=== PATIENT | female | born 1985 | race Caucasian/White ===

== ENCOUNTER 2016-03-09 18:28 | Emergency (ER) | payer OTHER ==
[2016-03-09 18:52] VITALS: BP 103/64; PULSE 97; TEMP 99.2; BMI 28.1
--- NOTE | 2016-03-09 21:00 | PDOC ---
History of Present Illness <LeoLudmila Pippa - Last Filed: 03/10/16 01:00> - History of Present Illness Initial Comments: 03/09/16 22:00 The patient is a 30 year old 8 week female with a past medical hx of kidney stones, anemia who presents to the ED for evaluation of vaginal bleeding and pelvic pain this evening. The patient states she used the bathroom and noticed red blood on the tissue. She denies any clots. She states this happened one time and has not happened again. The patient states she had LMP on January 08. She had an Ultrasound completed at 1 month of . 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 Schmidt, states there was no visual fetus because the was not far along enough. She reports she sees a Urologist for bladder problems and reports the Urologist saw gallstones with an US. The patient denies any abdominal pain, nausea, vomiting The patient denies any fever, chills The patient denies any chest pain, SOB Allergies: NKDA Surgical: Appendectomy Social: No toxic habits reported OBGYN: Dr. Schmidt <Jolie Robert - Last Filed: 03/10/16 01:05> - General Chief Complaint: Pain, Acute Stated Complaint: ABDOMINAL PAIN/8 WKS Time Seen by Provider: 03/09/16 19:53 Past History - Past Medical History Anemia: Yes Asthma: No Cancer: No Cardiac Disorders: No CVA: No COPD: No CHF: No Dementia: No Diabetes: No GI Disorders: Yes (ACID REFLUX, GASTRITIS) Disorders: Yes (UTI, Kidney Stones) HTN: No Hypercholesterolemia: No Kidney Stones: Yes Liver Disease: No Seizures: No Thyroid Disease: No - Surgical History Abdominal Surgery: No Appendectomy: Yes Cardiac Surgery: No Cholecystectomy: No Lung Surgery: No Neurologic Surgery: No Orthopedic Surgery: No - Immunization History Td Vaccination: Yes TDAP Vaccination: Yes Immunization Up to Date: Yes - Psycho/Social/Smoking Cessation Hx Anxiety: No Suicidal Ideation: No Smoking Status: No Smoking History: Never smoked Number of Cigarettes Smoked Daily: 0 Hx Alcohol Use: No Drug/Substance Use Hx: No Substance Use Type: None <LeoLudmilabronson Das - Last Filed: 03/10/16 01:00> <Jolie Robert - Last Filed: 03/10/16 01:05> - Past Medical History Allergies/Adverse Reactions: Allergies Allergy/AdvReac Type Severity Reaction Status Date / Time No Known Allergies Allergy Verified 03/09/16 18:41 Home Medications: Ambulatory Orders NK [No Known Home Medication] 03/09/16 Review of Systems - Review of Systems Able to Perform ROS?: Yes Comments:: 03/09/16 22:04 CONSTITUTIONAL: Absent: fever, chills, diaphoresis, generalized weakness, malaise, loss of appetite HEENT: Absent: rhinorrhea, nasal congestion, throat pain, throat swelling, difficulty swallowing, mouth swelling, ear pain, eye pain, visual Changes CARDIOVASCULAR: Absent: chest pain, syncope, palpitations, irregular heart rate, lightheadedness , peripheral edema RESPIRATORY: Absent: cough, shortness of breath, dyspnea with exertion, orthopnea, wheezing, stridor, hemoptysis GASTROINTESTINAL: Absent: abdominal pain, abdominal distension, nausea, vomiting, diarrhea, constipation, melena, hematochezia GENITOURINARY: +Vaginal bleeding, pelvic pain Absent: dysuria, frequency, urgency, hesitancy, hematuria, flank pain, genital pain MUSCULOSKELETAL: Absent: myalgia, arthralgia, joint swelling SKIN: Absent: rash, itching, pallor HEMATOLOGIC/IMMUNOLOGIC: Absent: easy bleeding, easy bruising, lymphadenopathy, frequent infections ENDOCRINE: Absent: unexplained weight gain, unexplained weight loss, heat intolerance, cold intolerance NEUROLOGIC: Absent: headache, focal weakness or paresthesias, dizziness, unsteady gait, seizure, mental status changes, bladder or bowel incontinence PSYCHIATRIC: Absent: anxiety, depression, suicidal or homicidal ideation, hallucinations. <Jolie Robert - Last Filed: 03/10/16 01:05> *Physical Exam - Vital Signs Last Vital Signs Temp Pulse Resp BP Pulse Ox 99.2 F 97 H 16 103/64 99 03/09/16 18:41 03/09/16 18:41 03/09/16 18:41 03/09/16 18:41 03/09/16 18:41 <Ludmila Bailey - Last Filed: 03/10/16 01:00> - Vital Signs Last Vital Signs Temp Pulse Resp BP Pulse Ox 99.2 F 97 H 16 103/64 99 03/09/16 18:41 03/09/16 18:41 03/09/16 18:41 03/09/16 18:41 03/09/16 18:41 - Physical Exam Comments: 03/09/16 23:16 GENERAL: Well developed, well nourished. Awake and alert. No acute distress. HEENT: Normocephalic, atraumatic. PERRLA, EOMI. No conjunctival pallor. Sclera are non- icteric. Moist mucous membranes. Oropharynx is clear. NECK: Supple. Full ROM. No JVD. Carotid pulses 2+ and symmetric, without bruits. No thyromegaly. No lymphadenopathy. CARDIOVASCULAR: Regular rate and rhythm. No murmurs, rubs, or gallops. Distal pulses are 2+ and symmetric. PULMONARY: No evidence of respiratory distress. Lungs clear to auscultation bilaterally. No wheezing, rales or rhonchi. ABDOMINAL: +Suprapubic tenderness. Soft. Non-distended. No rebound or guarding. No organomegaly. Normoactive bowel sounds. MUSCULOSKELETAL Normal range of motion at all joints. No bony deformities or tenderness. No CVA tenderness. EXTREMITIES: No cyanosis. No clubbing. No edema. No calf tenderness. SKIN: Warm and dry. Normal capillary refill. No rashes. No jaundice. NEUROLOGICAL: Alert, awake, appropriate. Cranial nerves 2-12 intact. No deficits to light touch and temperature in face, upper extremities and lower extremities. No motor deficits in the in face, upper extremities and lower extremities. Normoreflexic in the upper and lower extremities. Normal speech. PSYCHIATRIC: Cooperative. Good eye contact. Appropriate mood and affect. <Jolie Robert - Last Filed: 03/10/16 01:05> ED Treatment Course - LABORATORY CBC & Chemistry Diagram: 03/09/16 21:31 - RADIOLOGY Radiology Studies Ordered: Category Date Time Status TRANSVAGINAL ULTRASOUND US [US] Stat Ultrasound 03/09/16 20:50 Ordered <Ludmila Bailey - Last Filed: 03/10/16 01:00> - LABORATORY CBC & Chemistry Diagram: 03/09/16 21:31 - ADDITIONAL ORDERS Additional order review: Laboratory Results 03/09/16 21:31 Urine Color Straw Urine Appearance Clear Urine pH 7.0 Ur Specific Guin 1.013 Urine Protein Negative Urine Glucose (UA) Negative Urine Ketones Negative Urine Blood Negative Urine Nitrite Negative Urine Bilirubin Negative Urine Urobilinogen Negative Ur Leukocyte Esterase Negative 03/09/16 21:31 RBC 4.37 MCV 85.5 MCHC 32.4 RDW 14.6 MPV 8.2 Neutrophils % 66.9 Lymphocytes % 23.9 D Monocytes % 6.8 Eosinophils % 1.1 Basophils % 1.3 D - RADIOLOGY Radiology Studies Ordered: 03/10/16 01:05 Transvaginal US Impression: Single intrauterine gestational sac with estimated gestational age of 7 weeks 3 days. No pole is identified. No yolk sac is seen. Rule out blighted ovum/missed . Please correlate with serial quantitative serum beta-hCG and follow-up ultrasound is needed for further evaluation. Possible hemorrhagic corpus luteum cyst in the right ovary measuring 1.8 cm. 1.9 cm anterior myometrial fibroid Reported By: Josie Hartman MD 03/10/16 0014 <Jolie Robert - Last Filed: 03/10/16 01:05> *DC/Admit/Observation/Transfer <Ludmila Bailey - Last Filed: 03/10/16 01:00> - Attestations Scribe Attestion: 03/09/16 22:05 Documentation prepared by Jolie Robert, acting as medical office clerk for Ludmila Bailey MD/DO. <Jolie Robert - Last Filed: 03/10/16 01:05> Diagnosis at time of Disposition: Blighted ovum - Discharge Dispostion Disposition: HOME Condition at time of disposition: Stable - Referrals Referrals: STAFF,NOT ON [Primary Care Provider] - - Patient Instructions Printed Discharge Instructions: DI for Threatened Additional Instructions: There is concern for a blighted ovum because the ultrasound did not show a pole or yolk sac Please see Dr Schmidt for further evaluation Print Language: BHUTANESE
[2016-03-09 21:43] LABS: BASOPHIL 1.3 % (0-2.0); EOSINOPHIL 1.1 % (0-4.5); MCH 27.7 pg (25.7-33.7); MCHC 32.4 g/dl (32.0-36.0); MEAN CELL VOLUME 85.5 fl (80-96); MEAN PLT VOLUME 8.2 fl (7.5-11.1); NEUTROPHILS 66.9 % (42.8-82.8); PLATELET COUNT 274 K/MM3 (134-434); RDW 14.6 % (11.6-15.6); WHITE BLOOD COUNT 15.8 K/mm3 (4.0-10.0)
[2016-03-09 21:57] LABS: URINE APPEARANCE CLEAR; URINE BILIRUBIN NEGATIVE (NEGATIVE); URINE BLOOD NEGATIVE (NEGATIVE); URINE COLOR STRAW; URINE GLUCOSE (UA) NEGATIVE (NEGATIVE); URINE KETONE NEGATIVE (NEGATIVE); URINE LEUK ESTERASE NEGATIVE (NEGATIVE); URINE NITRITE NEGATIVE (NEGATIVE); URINE PROTEIN NEGATIVE (NEGATIVE); URINE UROBILINOGEN NEGATIVE E.U./dl (0.2-1.0)
== END 2016-03-10 01:07 | disposition home or self-care (01) ==
LOC: JER 18:28
DX: O26.891 Other specified pregnancy related conditions, first trimester (principal); Z3A.08 8 weeks gestation of pregnancy; O02.0 Blighted ovum and nonhydatidiform mole; Z87.442 Personal history of urinary calculi; Z86.2 Personal history of diseases of the blood and blood-forming organs and certain disorders involving the immune mechanism; K21.9 Gastro-esophageal reflux disease without esophagitis; Z87.440 Personal history of urinary (tract) infections
CPT/HCPCS: 36415; 76817-TC; 81003; 84702; 85025; 86850; 86900; 86901; 99282-25

== ENCOUNTER 2016-06-11 17:21 | Inpatient (IN) | payer OTHER ==
[2016-06-11 19:06] LABS: MCH 27.4 pg (25.7-33.7); MCHC 32.9 g/dl (32.0-36.0); MEAN CELL VOLUME 83.2 fl (80-96); MEAN PLT VOLUME 8.1 fl (7.5-11.1); PLATELET COUNT 245 K/MM3 (134-434); RDW 14.4 % (11.6-15.6); WHITE BLOOD COUNT 24.1 K/mm3 (4.0-10.0)
[2016-06-11] MEDS ORDERED: ONDANSETRON 4 MG/2 ML VIAL IVPB ONE (19:19)
[2016-06-11] MEDS ORDERED: ACETAMINOPHEN 1000 MG/100 ML VIAL (NON FORMULARY) IVPB ONE (19:19)
[2016-06-11] MEDS ORDERED: FAMOTIDINE 20 MG/50 ML IVPB 50 ML IVPB ONE ×2 (19:19→19:40)
[2016-06-11] MEDS ORDERED: SODIUM CHLORIDE 1,000 ML IV STA (19:19)
[2016-06-11] MEDS ORDERED: MAG HYDROX/AL HYDROX/SIMETH 30 ML UNIT-DOSE CUP PO ONE (19:19)
[2016-06-11 19:27] LABS: ALBUMIN 3.7 g/dl (3.4-5.0); ANION GAP 12 (8-16); CALCIUM 8.7 mg/dL (8.5-10.1); CO2 22 mmol/L (21-32); COCKROFT - GAULT 132.1835; CREATININE 0.7 mg/dL (0.55-1.02); GLUCOSE,RANDOM 87 mg/dL (74-106); SGOT/AST 39 U/L (15-37); SGPT/ALT 70 U/L (12-78)
[2016-06-11 19:28] LABS: ALK PHOS 104 U/L (45-117); BILIRUBIN,TOTAL 0.6 mg/dL (0.2-1.0); TOT PROT 7.9 g/dl (6.4-8.2)
[2016-06-11] MEDS ORDERED: ACETAMINOPHEN 325 MG TABLET (FP) PO ONE (19:37)
[2016-06-11] MEDS ORDERED: ACETAMINOPHEN 325 MG TABLET (FP) ONE (19:39)
[2016-06-11] MEDS ORDERED: MAG HYDROX/AL HYDROX/SIMETH 30 ML UNIT-DOSE CUP ONE (19:40)
[2016-06-11] MEDS ORDERED: ONDANSETRON 4 MG/2 ML VIAL ONE (19:40)
[2016-06-11] MEDS ORDERED: PENICILLIN V POTASSIUM 500 MG TABLET PO ONE (20:21)
[2016-06-11] MEDS ORDERED: DEXAMETHASONE SOD PHOSPHATE 10 MG/1 ML VIAL IVPB ONE (20:21)
[2016-06-11] MEDS ORDERED: DEXAMETHASONE SOD PHOSPHATE 10 MG/1 ML VIAL ONE (20:23)
--- NOTE | 2016-06-11 20:35 | PDOC ---
History of Present Illness - General History Source: Patient Exam Limitations: No Limitations <Angelo Chu - Last Filed: 06/11/16 21:02> - General History Source: Patient, Old Records Exam Limitations: No Limitations - History of Present Illness Initial Comments: 06/11/16 21:33 The patient is a 30 year old female, with a significant past medical history of gallstones, who presents to the emergency department with nausea, vomiting and epigastric pain since yesterday. The patient additionally endorses fever, chills and a sore throat. Currently in the ED, the patient reports that she feels weak. The patient denies any recent travel. The patients is sick with similar symptoms. Allergies: None reported. Past Surgical History: Appendectomy. Social History: Non smoker. Denies alcohol or drug use. PCP: Dr. Gatito Truong <Charlene Tracy - Last Filed: 06/11/16 22:43> - General Chief Complaint: Pain, Acute Stated Complaint: VOMITING/ABD PAIN Time Seen by Provider: 06/11/16 19:12 Past History - Past Medical History Anemia: Yes Asthma: No Cancer: No Cardiac Disorders: No CVA: No COPD: No CHF: No Dementia: No Diabetes: No GI Disorders: Yes (ACID REFLUX, GASTRITIS) Disorders: Yes (UTI, Kidney Stones) HTN: No Hypercholesterolemia: No Kidney Stones: Yes Liver Disease: No Seizures: No Thyroid Disease: No - Surgical History Abdominal Surgery: No Appendectomy: Yes Cardiac Surgery: No Cholecystectomy: No Lung Surgery: No Neurologic Surgery: No Orthopedic Surgery: No - Immunization History Td Vaccination: Yes TDAP Vaccination: Yes Immunization Up to Date: Yes - Psycho/Social/Smoking Cessation Hx Anxiety: No Suicidal Ideation: No Smoking Status: No Smoking History: Never smoked Number of Cigarettes Smoked Daily: 0 Hx Alcohol Use: No Drug/Substance Use Hx: No Substance Use Type: None <Angelo Chu - Last Filed: 06/11/16 21:02> <Charlene Tracy - Last Filed: 06/11/16 22:43> - Past Medical History Allergies/Adverse Reactions: Allergies Allergy/AdvReac Type Severity Reaction Status Date / Time No Known Allergies Allergy Verified 06/11/16 17:58 Home Medications: Ambulatory Orders NK [No Known Home Medication] 03/09/16 Review of Systems - Review of Systems Able to Perform ROS?: Yes Comments:: 06/11/16 21:29 GENERAL/CONSTITUTIONAL: +Fever, chills, generalized weakness. HEAD, EYES, EARS, NOSE AND THROAT: +Sore throat. No change in vision. No ear pain or discharge. CARDIOVASCULAR: No chest pain or shortness of breath. RESPIRATORY: No cough, wheezing, or hemoptysis. GASTROINTESTINAL: +Nausea, vomiting, epigastric pain. No diarrhea or constipation. GENITOURINARY: No dysuria, frequency, or change in urination. MUSCULOSKELETAL: No joint or muscle swelling or pain. No neck or back pain. SKIN: No rash. NEUROLOGIC: No headache, vertigo, loss of consciousness, or change in strength/ sensation. ENDOCRINE: No increased thirst. No abnormal weight change. HEMATOLOGIC/LYMPHATIC: No anemia, easy bleeding, or history of blood clots. ALLERGIC/IMMUNOLOGIC: No hives or skin allergy. <Charlene Tracy - Last Filed: 06/11/16 22:43> *Physical Exam - Vital Signs Last Vital Signs Temp Pulse Resp BP Pulse Ox 100.5 F H 135 H 19 131/69 98 06/11/16 17:58 06/11/16 17:58 06/11/16 17:58 06/11/16 17:58 06/11/16 17:58 <Angelo Chu - Last Filed: 06/11/16 21:02> - Vital Signs Last Vital Signs Temp Pulse Resp BP Pulse Ox 100.5 F H 135 H 19 131/69 98 06/11/16 17:58 06/11/16 17:58 06/11/16 17:58 06/11/16 17:58 06/11/16 17:58 - Physical Exam Comments: 06/11/16 21:23 GENERAL: Awake, alert, and fully oriented, in no acute distress. HEAD: No signs of trauma. EYES: PERRLA, EOMI, sclera anicteric, conjunctiva clear. ENT: Auricles normal inspection, hearing grossly normal, nares patent, oropharynx is erythematous without exudates. Moist mucosa. NECK: Normal ROM, supple, no lymphadenopathy, JVD, or masses. LUNGS: Breath sounds equal, clear to auscultation bilaterally. No wheezes, and no crackles. HEART: Regular rate and rhythm, normal S1 and S2, no murmurs, rubs or gallops. ABDOMEN: Epigastric tenderness to palpation. Soft, normoactive bowel sounds. No guarding, no rebound. No masses. EXTREMITIES: Normal range of motion, no edema. No clubbing or cyanosis. No cords , erythema, or tenderness. NEUROLOGICAL: Cranial nerves II through XII intact. Normal speech, normal gait. SKIN: Warm, dry, normal turgor, no rashes or lesions noted. <Kiamesha LakeCharlene Givens - Last Filed: 06/11/16 22:43> ED Treatment Course - LABORATORY CBC & Chemistry Diagram: 06/11/16 18:40 06/11/16 18:58 - ADDITIONAL ORDERS Additional order review: Laboratory Results 06/11/16 06/11/16 06/11/16 18:58 18:58 18:40 Sodium 140 Potassium 3.6 Chloride 106 Carbon Dioxide 22 D Anion Gap 12 BUN 9 D Creatinine 0.7 Creat Clearance w eGFR > 60 Random Glucose 87 Calcium 8.7 Total Bilirubin 0.6 AST 39 H D ALT 70 D Alkaline Phosphatase 104 D Total Protein 7.9 Albumin 3.7 Lipase 125 Serum , Qual Negative 06/11/16 19:20 Group A Strep Rapid Antigen - Final Throat 06/11/16 18:55 Influenza Types A,B Antigen (ANICETO) - Final Nasopharyngeal Swab - Final 06/11/16 18:40 RBC 4.45 MCV 83.2 MCHC 32.9 RDW 14.4 MPV 8.1 Neutrophils % Y Lymphocytes % Y - RADIOLOGY Radiology Studies Ordered: Category Date Time Status ABDOMEN US -LIMITED [US] Stat Ultrasound 06/11/16 19:32 Ordered - Medications Given in the ED: ED Medications Discontinued Medications Generic Name Dose Route Start Last Admin Trade Name Freq PRN Reason Stop Dose Admin Acetaminophen 1,000 mg 06/11/16 19:19 06/11/16 20:19 Ofirmev Injection - IVPB 06/11/16 19:20 Not Given ONCE ONE Acetaminophen 975 mg 06/11/16 19:37 06/11/16 20:10 Tylenol - PO 06/11/16 19:38 975 mg ONCE ONE Administration Al Hydroxide/Mg Hydroxide 30 ml 06/11/16 19:19 06/11/16 20:10 Mylanta Oral Suspension - PO 06/11/16 19:20 30 ml ONCE ONE Administration Famotidine/Sodium Chloride 50 mls @ 100 mls/hr 06/11/16 19:19 06/11/16 20:10 Pepcid 20 Mg Premixed Ivpb - IVPB 06/11/16 19:48 100 mls/hr ONCE ONE Administration Sodium Chloride 1,000 mls @ 1,000 mls/hr 06/11/16 19:19 06/11/16 20:10 Normal Saline - IV 06/11/16 20:18 1,000 mls/hr ASDIR STA Administration Ondansetron HCl 4 mg 06/11/16 19:19 06/11/16 20:10 Zofran Injection IVPB 06/11/16 19:20 4 mg ONCE ONE Administration <Angelo Chu - Last Filed: 06/11/16 21:02> - LABORATORY CBC & Chemistry Diagram: 06/11/16 18:40 06/11/16 18:58 - ADDITIONAL ORDERS Additional order review: Laboratory Results 06/11/16 06/11/16 06/11/16 18:58 18:58 18:40 Sodium 140 Potassium 3.6 Chloride 106 Carbon Dioxide 22 D Anion Gap 12 BUN 9 D Creatinine 0.7 Creat Clearance w eGFR > 60 Random Glucose 87 Calcium 8.7 Total Bilirubin 0.6 AST 39 H D ALT 70 D Alkaline Phosphatase 104 D Total Protein 7.9 Albumin 3.7 Lipase 125 Serum , Qual Negative 06/11/16 19:20 Group A Strep Rapid Antigen - Final Throat 06/11/16 18:55 Influenza Types A,B Antigen (ANICETO) - Final Nasopharyngeal Swab - Final 06/11/16 18:40 RBC 4.45 MCV 83.2 MCHC 32.9 RDW 14.4 MPV 8.1 Neutrophils % 82.0 D Lymphocytes % 7.0 L D Monocytes % 1.0 L D - Medications Given in the ED: ED Medications Discontinued Medications Generic Name Dose Route Start Last Admin Trade Name Freq PRN Reason Stop Dose Admin Acetaminophen 1,000 mg 06/11/16 19:19 06/11/16 20:19 Ofirmev Injection - IVPB 06/11/16 19:20 Not Given ONCE ONE Acetaminophen 975 mg 06/11/16 19:37 06/11/16 20:10 Tylenol - PO 06/11/16 19:38 975 mg ONCE ONE Administration Al Hydroxide/Mg Hydroxide 30 ml 06/11/16 19:19 06/11/16 20:10 Mylanta Oral Suspension - PO 06/11/16 19:20 30 ml ONCE ONE Administration Dexamethasone Sodium Phosphate 10 mg 06/11/16 20:21 06/11/16 20:41 Decadron Injection - IVPB 06/11/16 20:22 10 mg ONCE ONE Administration Famotidine/Sodium Chloride 50 mls @ 100 mls/hr 06/11/16 19:19 06/11/16 20:10 Pepcid 20 Mg Premixed Ivpb - IVPB 06/11/16 19:48 100 mls/hr ONCE ONE Administration Sodium Chloride 1,000 mls @ 1,000 mls/hr 06/11/16 19:19 06/11/16 20:10 Normal Saline - IV 06/11/16 20:18 1,000 mls/hr ASDIR STA Administration Ondansetron HCl 4 mg 06/11/16 19:19 06/11/16 20:10 Zofran Injection IVPB 06/11/16 19:20 4 mg ONCE ONE Administration Penicillin V Potassium 500 mg 06/11/16 20:21 06/11/16 20:41 Pen Vee K - PO 06/11/16 20:22 500 mg ONCE ONE Administration <Charlene Tracy - Last Filed: 06/11/16 22:43> Medical Decision Making - Medical Decision Making 06/11/16 20:35 A portion of this note was documented by scribe services under my direction. I have reviewed the details of the note, within reason, and agree with the documentation with the following case summary and management plan written by me. Patient treated in the ED. Nursing notes are reviewed and incorporated into the medical decision-making. Vital signs reviewed. Peripheral IV access obtained by the nurse, laboratory studies are drawn and sent, reviewed and interpreted by myself. Vital Signs Temp Pulse Resp BP Pulse Ox 100.5 F H 135 H 19 131/69 98 06/11/16 17:58 06/11/16 17:58 06/11/16 17:58 06/11/16 17:58 06/11/16 17:58 30-year-old female history of gallstones presents immersed department with her for sore throat, chills, fevers, general malaise. Patient has epigastric abdominal pain, nausea or vomiting. She swab positive for group A strep. Ultrasound was performed to rule out acute cholecystitis given elevated white count but her ultrasound shows gallstones but no gallbladder infection. Patient's white blood cell count 24 with 8% bands. Given the blood work, blood cultures were ordered and IV ceftriaxone was ordered. Case was discussed with Dr. Chávez who accepts the patient under med/surg admission. Case discussed in detail with admitting physician including history, physical exam and ancillary studies. Admitting physician has assumed care for the patient, will follow all pending diagnostics and will complete the evaluation and treatment. <Angelo Chu - Last Filed: 06/11/16 21:02> - Medical Decision Making 06/11/16 21:25 EXAM: US/ABDOMEN US - LIMITED Reviewed By: Dr. Josie Hartman IMPRESSION: Hepatomegaly with fatty infiltration versus hepatocellular disease. Multiple small gallstones without sonographic evidence of acute cholecystitis. Call placed to Dr. Chávez at 21:03. Referred to answering service , awaiting callback. Dr. Chávez returned call at 21:04, case discussed. <Charlene Tracy - Last Filed: 06/11/16 22:43> *DC/Admit/Observation/Transfer - Discharge Dispostion Admit: Yes <Angelo Chu - Last Filed: 06/11/16 21:02> - Attestations Scribe Attestion: 06/11/16 21:15 Documentation prepared by Charlene Tracy, acting as medical manager for Angelo Chu MD. <Charlene Tracy - Last Filed: 06/11/16 22:43> Diagnosis at time of Disposition: Strep pharyngitis, Bandemia - Referrals - Patient Instructions
[2016-06-11 20:50] LABS: PLATELET ESTIMATE ADEQUATE (NORMAL)
[2016-06-11] MEDS ORDERED: CEFTRIAXONE 1 GM in DEXTROSE 5%-WATER - 50 ML IVPB ONE (21:03)
[2016-06-11] MEDS ORDERED: CEFTRIAXONE 50 ML ONE (23:15)
[2016-06-12 02:54] VITALS: BMI 29.0
[2016-06-12] MEDS: DEXTROSE 5%-0.45% SALINE 1,000 ML IV SCH (03:26)
[2016-06-12] MEDS: ACETAMINOPHEN 325 MG TABLET (FP) PO PRN ×2 (08:26→16:09)
[2016-06-12] MEDS ORDERED: cefTRIAXone 1 GM/50 ML BAG (PRE-DOCKED) IVPB SCH (10:00)
[2016-06-12] MEDS ORDERED: CEFTRIAXONE 1 GM in DEXTROSE 5%-WATER - 50 ML IVPB SCH (10:00)
--- NOTE | 2016-06-12 14:03 | CONSULT ---
Consult Consult Specialty:: infectious diseases Referred by:: Reason for Consultation:: sore throat,leukocytosis,fever. abd pain,dirrhoea - History of Present Illness Chief Complaint: sore throat,fever,weakness abd pain History of Present Illness: 30 F with protracted h/o UTI issues. s/p ureteral stent placement 1patient admitted wiht fever chills and sore throat because of her uti problems patient has received multipls abx patient dx'ed with strept. Pt was complaining of abdominal pain w/ nausea, sore throat and fatigue w/ chills. Pt denies any diarrhea/vomiting/BELTRAN/cough/ SOB. work up showed leukocytosis.nad patient having fever throat culture tested (+ ) for strept. US of abd was done wc showed gallstones and for wc pt states that in the past whenever she eats a fatty meal she gets abdominal pain. Although the abdominal discomfort/pain she felt today was different patient cannot talk properly because of throat pain - History Source History Provided By: Family Member Limitations to Obtaining History: Language Barrier - Past Medical History ...LMP: 02/06/15 ...: No - Alcohol/Substance Use Hx Alcohol Use: No - Smoking History Smoking history: Never smoked Aproximately how many cigarettes per day: 0 Home Medications - Allergies Allergies/Adverse Reactions: Allergies Allergy/AdvReac Type Severity Reaction Status Date / Time No Known Allergies Allergy Verified 06/11/16 17:58 - Home Medications Home Medications: Ambulatory Orders NK [No Known Home Medication] 03/09/16 Review of Systems - Review of Systems Constitutional: reports: Fever, Other Eyes: reports: No Symptoms HENT: reports: Difficult Swallowing, Throat Pain, Other Neck: reports: No Symptoms Cardiovascular: reports: No Symptoms Respiratory: reports: No Symptoms Gastrointestinal: reports: No Symptoms Genitourinary: reports: No Symptoms Breasts: reports: No Symptoms Reported Musculoskeletal: reports: No Symptoms Integumentary: reports: No Symptoms Neurological: reports: No Symptoms Endocrine: reports: No Symptoms Hematology/Lymphatic: reports: No Symptoms Psychiatric: reports: No Symptoms Physical Exam Vital Signs: Vital Signs Temperature 98.2 F 06/12/16 09:10 Pulse Rate 83 06/12/16 09:10 Respiratory Rate 20 06/12/16 09:10 Blood Pressure 105/59 06/12/16 09:10 O2 Sat by Pulse Oximetry (%) 96 06/12/16 09:10 Constitutional: Yes: Well Nourished, Calm, Moderate Distress, Obese Eyes: Yes: Conjunctiva Clear HENT: Yes: Pharyngeal Erythema, Other (peritonsillar smal abscess) Neck: Yes: Supple, Trachea Midline Cardiovascular: Yes: Regular Rate and Rhythm Respiratory: Yes: Regular, CTA Bilaterally Gastrointestinal: Yes: Normal Bowel Sounds, Tenderness (ruq) Musculoskeletal: Yes: WNL Extremities: Yes: WNL Integumentary: Yes: WNL Neurological: Yes: Alert, Oriented Psychiatric: Yes: Alert, Oriented Imaging - Results Ultrasound: Report Reviewed, Image Reviewed Assessment/Plan - Problems (1) Fever Code(s): R50.9 - FEVER, UNSPECIFIED (2) Abdominal pain Code(s): R10.9 - UNSPECIFIED ABDOMINAL PAIN strp throat plan abx started await for gi to evaluate cx report awaited ct awaited
[2016-06-12] MEDS: PIPERACILLIN/TAZOB 3.375 GM 50 ML IVPB SCH (17:18)
--- NOTE | 2016-06-12 17:18 | HP ---
Admitting History and Physical - Admission Chief Complaint: Fever History of Present Illness: Pt is a 30 y/o luxembourger speaking female who presented to the ER with her boyfriend who was also sick and dx'ed with strept. Pt was complaining of abdominal pain w/ nausea, sore throat and fatigue w/ chills. Pt denies any diarrhea/vomiting/BELTRAN/cough/SOB. In the ER pt found to have a temp of 100.5 and WBC of >24,000. She throat culture tested (+) for strept. US of abd was done wc showed gallstones and for wc pt states that in the past whenever she eats a fatty meal she gets abdominal pain. Although the abdominal discomfort/pain she felt today was different. History Source: Patient, Family Member Limitations to Obtaining History: No Limitations - Past Medical History Gastrointestinal: Yes: Other (Gallstones) ...LMP: 02/06/15 ...: No - Past Surgical History Past Surgical History: Yes: Appendectomy - Smoking History Smoking history: Never smoked Aproximately how many cigarettes per day: 0 - Alcohol/Substance Use Hx Alcohol Use: No Home Medications - Allergies Allergies/Adverse Reactions: Allergies Allergy/AdvReac Type Severity Reaction Status Date / Time No Known Allergies Allergy Verified 06/11/16 17:58 - Home Medications Home Medications: Ambulatory Orders NK [No Known Home Medication] 03/09/16 Family Disease History - Family Disease History Family History: Unremarkable Review of Systems - Review of Systems Constitutional: reports: Chills, Fever, Weakness Eyes: reports: No Symptoms HENT: reports: No Symptoms Neck: reports: Other ((+) sore throat) Cardiovascular: reports: No Symptoms Respiratory: reports: No Symptoms Gastrointestinal: reports: Abdominal Pain, Nausea Physical Examination Vital Signs: Vital Signs Temperature 99.2 F 06/12/16 14:00 Pulse Rate 91 H 06/12/16 14:00 Respiratory Rate 20 06/12/16 14:00 Blood Pressure 106/66 06/12/16 14:00 O2 Sat by Pulse Oximetry (%) 96 06/12/16 09:10 Constitutional: Yes: Well Nourished Eyes: Yes: WNL HENT: Yes: Other ((+) throat hyperemic) Neck: Yes: Supple Cardiovascular: Yes: WNL, Regular Rate and Rhythm Respiratory: Yes: WNL, Regular, CTA Bilaterally Gastrointestinal: Yes: WNL, Normal Bowel Sounds, Soft Musculoskeletal: Yes: WNL Extremities: Yes: WNL Edema: No Problem List - Problems (1) Fever Assessment/Plan: Cont IV antibxs Monitor WBC Follow cultures ID consult Cont IVF Code(s): R50.9 - FEVER, UNSPECIFIED
[2016-06-12] MEDS: CLINDAMYCIN 300 MG PREMIX IVPB 50 ML IVPB SCH (17:39)
[2016-06-13] MEDS ORDERED: KETOROLAC TROMETHAMINE 30 MG/1 ML VIAL IVPB PRN (01:16)
[2016-06-13] MEDS: CLINDAMYCIN 300 MG PREMIX IVPB 50 ML IVPB SCH ×3 (01:37→19:02)
[2016-06-13] MEDS: PIPERACILLIN/TAZOB 3.375 GM 50 ML IVPB SCH ×3 (02:45→17:21)
[2016-06-13] MEDS: ONDANSETRON 4 MG/2 ML VIAL IVPB PRN ×3 (02:45→21:16)
[2016-06-13] MEDS: DEXTROSE 5%-0.45% SALINE 1,000 ML IV SCH (02:46)
[2016-06-13 08:09] LABS: BASOPHIL 0.2 % (0-2.0); EOSINOPHIL 0.9 % (0-4.5); MCH 27.5 pg (25.7-33.7); MCHC 32.9 g/dl (32.0-36.0); MEAN CELL VOLUME 83.5 fl (80-96); MEAN PLT VOLUME 8.5 fl (7.5-11.1); NEUTROPHILS 79.3 % (42.8-82.8); PLATELET COUNT 212 K/MM3 (134-434); RDW 15.2 % (11.6-15.6)
[2016-06-13 08:55] LABS: ALK PHOS 86 U/L (45-117); ANION GAP 10 (8-16); BILIRUBIN,TOTAL 0.3 mg/dL (0.2-1.0); CALCIUM 8.3 mg/dL (8.5-10.1); CO2 25 mmol/L (21-32); CREATININE 0.6 mg/dL (0.55-1.02); GLUCOSE,RANDOM 88 mg/dL (74-106); SGOT/AST 23 U/L (15-37); SGPT/ALT 64 U/L (12-78); TOT PROT 6.6 g/dl (6.4-8.2)
[2016-06-13] MEDS: ACETAMINOPHEN 325 MG TABLET (FP) PO PRN ×2 (12:26→23:48)
--- NOTE | 2016-06-13 14:06 | CON.GI ---
Consult Consult Specialty:: GI Referred by:: Dr Chávez Reason for Consultation:: Sepsis, gallstones - History of Present Illness Chief Complaint: Leukocytosis with fever, chills and sore throat History of Present Illness: 30 F with protracted h/o UTI issues. She is s/p ureteral stent placement 1 1/2 years ago ([facility]) and states she has not had a period of longer than 2 months without having a UTI. She is frequently on AbRx for this problem. She is currently admitted with fever, chills and sore throat and was found to have group A strep in the blood. She states she intermittently gets mild RUQ pain after eating a large fatty meal (ie: pizza) but that is not a problem at this time. - History Source History Provided By: Patient, Significant Other () Limitations to Obtaining History: No Limitations - Past Medical History ...LMP: 02/06/15 ...: No Infectious Disease: Yes: Other (frequent UTIs) - Alcohol/Substance Use Hx Alcohol Use: No - Smoking History Smoking history: Never smoked Aproximately how many cigarettes per day: 0 Home Medications - Allergies Allergies/Adverse Reactions: Allergies Allergy/AdvReac Type Severity Reaction Status Date / Time No Known Allergies Allergy Verified 06/11/16 17:58 - Home Medications Home Medications: Ambulatory Orders NK [No Known Home Medication] 03/09/16 Physical Exam-GI Vital Signs: Vital Signs Temperature 98.5 F 06/13/16 10:00 Pulse Rate 83 06/13/16 10:00 Respiratory Rate 18 06/13/16 10:00 Blood Pressure 98/56 06/13/16 10:00 O2 Sat by Pulse Oximetry (%) 98 06/13/16 10:00 Constitutional: Yes: Well Nourished, No Distress, Calm HENT: Yes: Normocephalic Cardiovascular: Yes: Regular Rate and Rhythm. No: Murmur Respiratory: Yes: CTA Bilaterally ...Auscultate: Yes: Normoactive Bowel Sounds ...Palpate: Yes: Soft. No: Tenderness Labs: CBC, BMP 06/13/16 05:35 06/13/16 05:35 Hepatic Panel Total Bilirubin 0.3 mg/dL (0.2-1.0) D 06/13/16 05:35 AST 23 U/L (15-37) D 06/13/16 05:35 ALT 64 U/L (12-78) 06/13/16 05:35 Alkaline Phosphatase 86 U/L (45-117) 06/13/16 05:35 Albumin 3.0 g/dl (3.4-5.0) L 06/13/16 05:35 Imaging - Results Ultrasound: Report Reviewed (fatty liver, normal ducts, gallstones in a normal- appearing gb) Assessment/Plan 30 F with above history admitted with fever, chills, and sore throat and found to be group A strep (+) No clinical, biochemical or radiologic evidence of cholecystitis or cholangitis. Management of likely urosepsis per ID and PCP. Consider urology consult. Gallbladder status is stable. She may want elective cholecystectomy as opt if she develops symptoms. Please call if I can be of further assistance
[2016-06-13] MEDS: PANTOPRAZOLE 40 MG TABLET (FP) PO SCH (15:58)
--- NOTE | 2016-06-13 17:11 | PN ---
Progress Note, Physician History of Present Illness: patient doing much better no complaints throat improving - Current Medication List Current Medications: Active Medications Acetaminophen (Tylenol -) 650 mg PO Q4H PRN PRN Reason: FEVER OR PAIN Last Admin: 06/13/16 12:26 Dose: 650 mg Dextrose/Sodium Chloride (D5-1/2ns -) 1,000 mls @ 75 mls/hr IV ASDIR RUBY Last Admin: 06/13/16 02:46 Dose: 75 mls/hr Clindamycin Phosphate (Cleocin 300 Mg Premix Ivpb) 50 mls @ 100 mls/hr IVPB Q8H -IV RUBY Last Admin: 06/13/16 13:28 Dose: 100 mls/hr Piperacillin Sod/Tazobactam Sod (Zosyn 3.375gm Ivpb (Pre-Docked)) 50 mls @ 100 mls/hr IVPB Q8H-IV RUBY PRN Reason: Protocol Last Admin: 06/13/16 10:32 Dose: 100 mls/hr Ketorolac Tromethamine (Toradol Injection -) 30 mg IVPB Q6H PRN PRN Reason: PAIN Stop: 06/18/16 01:15 Last Admin: 06/13/16 03:24 Dose: 30 mg Ondansetron HCl (Zofran Injection) 4 mg IVPB Q6H PRN PRN Reason: NAUSEA AND/OR VOMITING Last Admin: 06/13/16 12:26 Dose: 4 mg Pantoprazole Sodium (Protonix -) 40 mg PO DAILY RUBY Last Admin: 06/13/16 15:58 Dose: 40 mg - Objective Vital Signs: Vital Signs Temperature 98.5 F 06/13/16 10:00 Pulse Rate 83 06/13/16 10:00 Respiratory Rate 18 06/13/16 10:00 Blood Pressure 98/56 06/13/16 10:00 O2 Sat by Pulse Oximetry (%) 98 06/13/16 10:00 Constitutional: Yes: No Distress, Calm Eyes: Yes: Conjunctiva Clear HENT: Yes: Atraumatic, Normocephalic Neck: Yes: Supple, Trachea Midline Cardiovascular: Yes: Regular Rate and Rhythm Respiratory: Yes: Regular, CTA Bilaterally Musculoskeletal: Yes: WNL Extremities: Yes: WNL Neurological: Yes: Alert, Oriented Psychiatric: Yes: Alert, Oriented Labs: CBC, BMP 06/13/16 05:35 06/13/16 05:35 Assessment/Plan - Problems (1) Fever Code(s): R50.9 - FEVER, UNSPECIFIED (2) Abdominal pain Code(s): R10.9 - UNSPECIFIED ABDOMINAL PAIN strp throat plan will change to oral abx tomorrow rest as per gi and primary
[2016-06-13 17:36] LABS: URINE APPEARANCE CLEAR; URINE BILIRUBIN NEGATIVE (NEGATIVE); URINE COLOR COLORLESS; URINE GLUCOSE (UA) NEGATIVE (NEGATIVE); URINE KETONE NEGATIVE (NEGATIVE); URINE LEUK ESTERASE NEGATIVE (NEGATIVE); URINE NITRITE NEGATIVE (NEGATIVE); URINE PROTEIN NEGATIVE (NEGATIVE); URINE UROBILINOGEN NEGATIVE E.U./dl (0.2-1.0)
[2016-06-13 17:39] LABS: URINE BLOOD 1+ (NEGATIVE)
[2016-06-13 17:40] LABS: URINE BACTERIA RARE /hpf (NONE SEEN); URINE HYALINE CAST 1 /lpf; URINE RBC 1 /hpf (0-3); URINE WBC 1 /hpf (3-5)
[2016-06-13] MEDS ORDERED: PT OWN MED DRAWER 7, Y5N ONE (18:00)
--- NOTE | 2016-06-13 22:55 | PN ---
Progress Note, Physician History of Present Illness: Pt said today that she has had multiple UTI's in the past. Pt also has had some intermittent abdominal discomfort. No nasuea/vomiting - Current Medication List Current Medications: Active Medications Acetaminophen (Tylenol -) 650 mg PO Q4H PRN PRN Reason: FEVER OR PAIN Last Admin: 06/13/16 12:26 Dose: 650 mg Dextrose/Sodium Chloride (D5-1/2ns -) 1,000 mls @ 75 mls/hr IV ASDIR RUBY Last Admin: 06/13/16 02:46 Dose: 75 mls/hr Clindamycin Phosphate (Cleocin 300 Mg Premix Ivpb) 50 mls @ 100 mls/hr IVPB Q8H -IV RUBY Last Admin: 06/13/16 19:02 Dose: 100 mls/hr Piperacillin Sod/Tazobactam Sod (Zosyn 3.375gm Ivpb (Pre-Docked)) 50 mls @ 100 mls/hr IVPB Q8H-IV RUBY PRN Reason: Protocol Last Admin: 06/13/16 17:21 Dose: 100 mls/hr Ketorolac Tromethamine (Toradol Injection -) 30 mg IVPB Q6H PRN PRN Reason: PAIN Stop: 06/18/16 01:15 Last Admin: 06/13/16 03:24 Dose: 30 mg Ondansetron HCl (Zofran Injection) 4 mg IVPB Q6H PRN PRN Reason: NAUSEA AND/OR VOMITING Last Admin: 06/13/16 21:16 Dose: 4 mg Pantoprazole Sodium (Protonix -) 40 mg PO DAILY RUBY Last Admin: 06/13/16 15:58 Dose: 40 mg - Objective Vital Signs: Vital Signs Temperature 98.3 F 06/13/16 20:56 Pulse Rate 81 06/13/16 20:56 Respiratory Rate 18 06/13/16 21:00 Blood Pressure 114/67 06/13/16 20:56 O2 Sat by Pulse Oximetry (%) 99 06/13/16 21:00 Constitutional: Yes: No Distress Eyes: Yes: WNL HENT: Yes: WNL Neck: Yes: Supple Cardiovascular: Yes: WNL, Regular Rate and Rhythm Respiratory: Yes: WNL, Regular, CTA Bilaterally Gastrointestinal: Yes: WNL, Normal Bowel Sounds, Soft Labs: CBC, BMP 06/13/16 05:35 06/13/16 05:35 Problem List - Problems (1) Fever Assessment/Plan: Cont broad spectrum IV antibxs Slight decrease in WBC Follow cultures Check urine culture Check ct scan abd/pelvis Uro consult due to h/o multiple UTI's Cont IVF Code(s): R50.9 - FEVER, UNSPECIFIED (2) Abdominal pain Assessment/Plan: ?due to antibxs GI consult noted Add protonix Check ct scan abd/pelvis Code(s): R10.9 - UNSPECIFIED ABDOMINAL PAIN
[2016-06-14] MEDS: PIPERACILLIN/TAZOB 3.375 GM 50 ML IVPB SCH ×3 (01:12→16:55)
[2016-06-14] MEDS: CLINDAMYCIN 300 MG PREMIX IVPB 50 ML IVPB SCH ×3 (01:12→17:49)
[2016-06-14] MEDS ORDERED: PT OWN MED DRAWER 7, Y5N ONE ×3 (01:45→17:44)
[2016-06-14] MEDS: DEXTROSE 5%-0.45% SALINE 1,000 ML IV SCH ×2 (04:23→21:00)
[2016-06-14 07:45] LABS: BASOPHIL 0.4 % (0-2.0); EOSINOPHIL 4.2 % (0-4.5); MCH 27.4 pg (25.7-33.7); MCHC 32.9 g/dl (32.0-36.0); MEAN CELL VOLUME 83.2 fl (80-96); MEAN PLT VOLUME 8.4 fl (7.5-11.1); NEUTROPHILS 54.7 % (42.8-82.8); PLATELET COUNT 228 K/MM3 (134-434); RDW 14.8 % (11.6-15.6); WHITE BLOOD COUNT 11.6 K/mm3 (4.0-10.0)
[2016-06-14 08:12] LABS: ALBUMIN 2.8 g/dl (3.4-5.0); ALK PHOS 81 U/L (45-117); ANION GAP 13 (8-16); BILIRUBIN,TOTAL 0.5 mg/dL (0.2-1.0); CALCIUM 7.8 mg/dL (8.5-10.1); CO2 22 mmol/L (21-32); COCKROFT - GAULT 138.8815; CREATININE 0.7 mg/dL (0.55-1.02); GLUCOSE,RANDOM 77 mg/dL (74-106); SGOT/AST 25 U/L (15-37); SGPT/ALT 62 U/L (12-78); TOT PROT 6.3 g/dl (6.4-8.2)
[2016-06-14] MEDS: PANTOPRAZOLE 40 MG TABLET (FP) PO SCH (10:15)
[2016-06-14] MEDS: ACETAMINOPHEN 325 MG TABLET (FP) PO PRN (17:45)
--- NOTE | 2016-06-14 20:16 | PN ---
GI Progress Note Subjective: patiernt noted to have epigastric pain radiating to the ruq associated with nausea and vomiting, she did well on antibiotics and PPI - Objective Vital Signs: Vital Signs Temperature 97.9 F 06/14/16 14:15 Pulse Rate 90 06/14/16 14:15 Respiratory Rate 16 06/14/16 06:00 Blood Pressure 106/69 06/14/16 14:15 O2 Sat by Pulse Oximetry (%) 99 06/13/16 21:00 Constitutional: Well Nourished Eyes: Yes: Conjunctiva Clear HENT: Yes: Atraumatic Neck: Yes: Supple Cardiovascular: Yes: Regular Rate and Rhythm Respiratory: Yes: CTA Bilaterally ...Palpate: Yes: Soft. No: Firm/Rigid, Guarding, Hepatomegaly, Mass, Pulsatile Mass, Splenomegaly, Tenderness Labs: CBC, BMP 06/14/16 06:20 06/14/16 06:20 Problem List - Problems (1) Dysfunctional gallbladder Assessment/Plan: r> for HIDA scan if negative ok to d/c Code(s): K82.8 - OTHER SPECIFIED DISEASES OF GALLBLADDER (2) GERD (gastroesophageal reflux disease) Assessment/Plan: maintain on PPI made aware to folow-up EGD as an outpatient Code(s): K21.9 - GASTRO-ESOPHAGEAL REFLUX DISEASE WITHOUT ESOPHAGITIS
--- NOTE | 2016-06-14 22:56 | PN ---
Progress Note, Physician History of Present Illness: No new complaints - Current Medication List Current Medications: Active Medications Acetaminophen (Tylenol -) 650 mg PO Q4H PRN PRN Reason: FEVER OR PAIN Last Admin: 06/14/16 17:45 Dose: 650 mg Dextrose/Sodium Chloride (D5-1/2ns -) 1,000 mls @ 75 mls/hr IV ASDIR RUBY Last Admin: 06/14/16 21:00 Dose: 75 mls/hr Clindamycin Phosphate (Cleocin 300 Mg Premix Ivpb) 50 mls @ 100 mls/hr IVPB Q8H -IV RUBY Last Admin: 06/14/16 17:49 Dose: 100 mls/hr Piperacillin Sod/Tazobactam Sod (Zosyn 3.375gm Ivpb (Pre-Docked)) 50 mls @ 100 mls/hr IVPB Q8H-IV RUBY PRN Reason: Protocol Last Admin: 06/14/16 16:55 Dose: 100 mls/hr Ketorolac Tromethamine (Toradol Injection -) 30 mg IVPB Q6H PRN PRN Reason: PAIN Stop: 06/18/16 01:15 Last Admin: 06/13/16 03:24 Dose: 30 mg Ondansetron HCl (Zofran Injection) 4 mg IVPB Q6H PRN PRN Reason: NAUSEA AND/OR VOMITING Last Admin: 06/13/16 21:16 Dose: 4 mg Pantoprazole Sodium (Protonix -) 40 mg PO DAILY [facility] Last Admin: 06/14/16 10:15 Dose: 40 mg - Objective Vital Signs: Vital Signs Temperature 98.6 F 06/14/16 21:58 Pulse Rate 84 06/14/16 21:58 Respiratory Rate 20 06/14/16 21:58 Blood Pressure 118/70 06/14/16 21:58 O2 Sat by Pulse Oximetry (%) 99 06/13/16 21:00 Constitutional: Yes: Well Nourished Neck: Yes: Supple Cardiovascular: Yes: WNL, Regular Rate and Rhythm Respiratory: Yes: WNL, Regular, CTA Bilaterally Gastrointestinal: Yes: WNL, Normal Bowel Sounds, Soft Labs: CBC, BMP 06/14/16 06:20 06/14/16 06:20 Problem List - Problems (1) Fever Assessment/Plan: Cont broad spectrum IV antibxs BC remain negative Urine culture pending WBC decreased Cont IV antibxs Code(s): R50.9 - FEVER, UNSPECIFIED (2) Abdominal pain Assessment/Plan: ?due to antibxs Cont protonix Pt for HIDA scan due to gallstones If negative will dc home Code(s): R10.9 - UNSPECIFIED ABDOMINAL PAIN
[2016-06-15] MEDS: CLINDAMYCIN 300 MG PREMIX IVPB 50 ML IVPB SCH ×2 (02:02→12:29)
[2016-06-15] MEDS: PIPERACILLIN/TAZOB 3.375 GM 50 ML IVPB SCH ×2 (02:42→11:21)
[2016-06-15 07:51] LABS: BASOPHIL 0.4 % (0-2.0); EOSINOPHIL 3.7 % (0-4.5); MCH 27.7 pg (25.7-33.7); MCHC 33.4 g/dl (32.0-36.0); MEAN CELL VOLUME 82.9 fl (80-96); MEAN PLT VOLUME 8.2 fl (7.5-11.1); NEUTROPHILS 62.5 % (42.8-82.8); PLATELET COUNT 234 K/MM3 (134-434); WHITE BLOOD COUNT 9.9 K/mm3 (4.0-10.0)
[2016-06-15 08:27] LABS: ALBUMIN 3.1 g/dl (3.4-5.0); ANION GAP 9 (8-16); CALCIUM 8.3 mg/dL (8.5-10.1); CO2 26 mmol/L (21-32); GLUCOSE,RANDOM 83 mg/dL (74-106); SGOT/AST 34 U/L (15-37)
[2016-06-15 08:30] LABS: ALK PHOS 98 U/L (45-117); BILIRUBIN,TOTAL 0.4 mg/dL (0.2-1.0); COCKROFT - GAULT 160.905; CREATININE 0.6 mg/dL (0.55-1.02); SGPT/ALT 67 U/L (12-78)
[2016-06-15] MEDS: DEXTROSE 5%-0.45% SALINE 1,000 ML IV SCH (11:21)
[2016-06-15] MEDS: PANTOPRAZOLE 40 MG TABLET (FP) PO SCH (11:21)
[2016-06-15 14:15] VITALS: BP 106/74; PULSE 104; TEMP 99.3
--- NOTE | 2016-06-21 10:28 | PN ---
Progress Note, Physician History of Present Illness: patient doing much better no complaints throat improving no pain while swallowing - Objective Vital Signs: Vital Signs Temperature 99.3 F 06/15/16 14:14 Pulse Rate 104 H 06/15/16 14:14 Respiratory Rate 20 06/15/16 08:00 Blood Pressure 106/74 06/15/16 14:14 O2 Sat by Pulse Oximetry (%) 99 06/15/16 08:00 Constitutional: Yes: No Distress, Calm HENT: Yes: Atraumatic Neck: Yes: Supple Cardiovascular: Yes: Regular Rate and Rhythm Respiratory: Yes: Regular, CTA Bilaterally Gastrointestinal: Yes: Normal Bowel Sounds, Soft Musculoskeletal: Yes: WNL Extremities: Yes: WNL Neurological: Yes: Alert, Oriented Psychiatric: Yes: Alert, Oriented Labs: CBC, BMP 06/15/16 06:40 06/15/16 06:40 Assessment/Plan - Problems (1) Fever Code(s): R50.9 - FEVER, UNSPECIFIED (2) Abdominal pain Code(s): R10.9 - UNSPECIFIED ABDOMINAL PAIN strp throat plan changed to oral abx rest as per gi and primary
== END 2016-06-15 18:16 | disposition home or self-care (01) | DRG 113 ==
LOC: JER 17:21 → JERBED 21:09 → J4S 06-12 01:41 → J4W 06-12 16:56 → J6S 06-13 23:47
PROVIDERS: ADMIT Internal Medicine; ATTEND Internal Medicine
DX: J02.0 Streptococcal pharyngitis (principal); R50.9 Fever, unspecified; K21.9 Gastro-esophageal reflux disease without esophagitis; D72.829 Elevated white blood cell count, unspecified; R10.11 Right upper quadrant pain
CPT/HCPCS: 36415; 74176-TC; 76705-TC; 76775-TC; 76856-TC; 78227-TC; 80053; 81003; 81015; 83605; 83690; 84703; 85025; 87040; 87070; 87077; 87086; 87430; 87804; 99283-25; A9537

== ENCOUNTER 2016-08-28 00:06 | Inpatient (IN) | payer OTHER ==
[2016-08-28 00:18] VITALS: BMI 27.4
--- NOTE | 2016-08-28 00:28 | PDOC ---
History of Present Illness <Mary Galan - Last Filed: 08/28/16 04:16> - General History Source: Patient Exam Limitations: No Limitations - History of Present Illness Travel History: No Initial Comments: 08/28/16 03:12 31-year-old female with a history of cholelithiasis presents to the emergency department complaining of right upper quadrant discomfort. Pain is described as 9/10 sharp intermittent discomfort which radiates to the right side of her back with nausea but denies vomiting. Pain is exacerbated while eating and there are no alleviating factors. Patient denies fever, chills, chest pain, shortness of breath, urinary symptoms: Frequency/urgency/hesitancy, hematuria. Patient had an ultrasound/limited on 08/16/2016 which shows cholelithiasis. Patient was told by her GI md/Dr. Lyons that she will need a laparoscopic cholecystectomy but the patient kept deferring at until her 6-year-old son was done with the school year which was yesterday. Timing/Duration: reports: intermittent Quality: reports: moderate Abdominal Pain Onset Location: reports: RUQ Pain Radiation: reports: epigastric Aggravating Factors: improves with: Eating Alleviating Factors: improves with: None <NovaBarak - Last Filed: 08/28/16 06:32> - General Chief Complaint: Pain, Acute Stated Complaint: PAIN/GALLBLADDER Time Seen by Provider: 08/28/16 00:25 Past History <Mary Galan - Last Filed: 08/28/16 04:16> - Past Medical History Anemia: Yes Asthma: No Cancer: No Cardiac Disorders: No CVA: No COPD: No CHF: No Dementia: No Diabetes: No GI Disorders: Yes (ACID REFLUX, GASTRITIS) Disorders: Yes (UTI, Kidney Stones) HTN: No Hypercholesterolemia: No Kidney Stones: Yes Liver Disease: No Seizures: No Thyroid Disease: No - Surgical History Abdominal Surgery: No Appendectomy: Yes Cardiac Surgery: No Cholecystectomy: No Lung Surgery: No Neurologic Surgery: No Orthopedic Surgery: No - Immunization History Td Vaccination: Yes TDAP Vaccination: Yes Immunization Up to Date: Yes - Psycho/Social/Smoking Cessation Hx Anxiety: No Suicidal Ideation: No Smoking Status: No Smoking History: Never smoked Have you smoked in the past 12 months: No Number of Cigarettes Smoked Daily: 0 Information on smoking cessation initiated: No Hx Alcohol Use: No Drug/Substance Use Hx: No Substance Use Type: None <Arline Bhattui - Last Filed: 08/28/16 06:32> - Past Medical History Allergies/Adverse Reactions: Allergies Allergy/AdvReac Type Severity Reaction Status Date / Time No Known Allergies Allergy Verified 08/28/16 00:16 Home Medications: Ambulatory Orders NK [No Known Home Medication] 08/28/16 Review of Systems - Review of Systems Able to Perform ROS?: Yes Comments:: 08/28/16 01:08 CONSTITUTIONAL: Absent: fever, chills, diaphoresis, generalized weakness, malaise, loss of appetite HEENT: Absent: rhinorrhea, nasal congestion, throat pain, throat swelling, difficulty swallowing, mouth swelling, ear pain, eye pain, visual Changes CARDIOVASCULAR: Absent: chest pain, loss of consciousness, palpitations, irregular heart rate, peripheral edema RESPIRATORY: Absent: cough, shortness of breath, dyspnea with exertion, orthopnea, wheezing, stridor, hemoptysis GASTROINTESTINAL: +abdominal pain Absent: abdominal distension, nausea, vomiting, diarrhea, constipation, melena, hematochezia GENITOURINARY: Absent: dysuria, frequency, urgency, hesitancy, hematuria, flank pain, genital pain MUSCULOSKELETAL: Absent: myalgia, arthralgia, joint swelling SKIN: Absent: rash, itching, pallor HEMATOLOGIC/IMMUNOLOGIC: Absent: easy bleeding, easy bruising, lymphadenopathy, frequent infections ENDOCRINE: Absent: unexplained weight gain, unexplained weight loss, heat intolerance, cold intolerance NEUROLOGIC: Absent: headache, focal weakness or paresthesias, dizziness, unsteady gait, seizure, mental status changes, bladder or bowel incontinence PSYCHIATRIC: Absent: anxiety, depression, suicidal or homicidal ideation, hallucinations. Is the patient limited Armenian proficient: No <Barak Bhatt - Last Filed: 08/28/16 06:32> *Physical Exam - Vital Signs Last Vital Signs Temp Pulse Resp BP Pulse Ox 97.9 F 81 20 110/70 100 08/28/16 00:13 08/28/16 00:13 08/28/16 00:13 08/28/16 00:13 08/28/16 00:13 <Mary Galan - Last Filed: 08/28/16 04:16> - Vital Signs Last Vital Signs Temp Pulse Resp BP Pulse Ox 97.9 F 81 20 110/70 100 08/28/16 00:13 08/28/16 00:13 08/28/16 00:13 08/28/16 00:13 08/28/16 00:13 - Physical Exam Comments: 08/28/16 01:09 GENERAL: Well developed, well nourished. Awake and alert. No acute distress. HEENT: Normocephalic, atraumatic. PERRLA, EOMI. No conjunctival pallor. Sclera are non- icteric. Moist mucous membranes. Oropharynx is clear. NECK: Supple. Full ROM. No JVD. Carotid pulses 2+ and symmetric, without bruits. No thyromegaly. No lymphadenopathy. CARDIOVASCULAR: Regular rate and rhythm. No murmurs, rubs, or gallops. Distal pulses are 2+ and symmetric. PULMONARY: No evidence of respiratory distress. Lungs clear to auscultation bilaterally. No wheezing, rales or rhonchi. ABDOMINAL: +RUQ TENDERNESS ON PALP Soft. Non-distended. No rebound or guarding. No organomegaly. Normoactive bowel sounds. MUSCULOSKELETAL Normal range of motion at all joints. No bony deformities or tenderness. No CVA tenderness. EXTREMITIES: No cyanosis. No clubbing. No edema. No calf tenderness. SKIN: Warm and dry. Normal capillary refill. No rashes. No jaundice. NEUROLOGICAL: Alert, awake, appropriate. Cranial nerves 2-12 intact. No deficits to light touch and temperature in face, upper extremities and lower extremities. No motor deficits in the in face, upper extremities and lower extremities. Normoreflexic in the upper and lower extremities. Normal speech. Toes are down- going bilaterally. Gait is normal without ataxia. PSYCHIATRIC: Cooperative. Good eye contact. Appropriate mood and affect. <Barak Bhatt - Last Filed: 08/28/16 06:32> Procedures - Bedside Ultrasound Bedside Ultrasound: Gallbladder Other: large amount stones, wall 3mm, CBD 3.8mm, no wall edema or perichol fluid. <Mary Galan - Last Filed: 08/28/16 04:16> ED Treatment Course - LABORATORY CBC & Chemistry Diagram: 08/28/16 00:38 08/28/16 00:38 - ADDITIONAL ORDERS Additional order review: Laboratory Results 08/28/16 08/28/16 01:25 00:38 Sodium 141 Potassium 3.6 Chloride 105 Carbon Dioxide 28 Anion Gap 8 BUN 9 Creatinine 0.7 Creat Clearance w eGFR > 60 Random Glucose 88 Calcium 8.4 L Total Bilirubin 0.3 D AST 16 ALT 31 Alkaline Phosphatase 71 Total Protein 7.1 Albumin 3.4 Total Amylase 72 Lipase 164 Urine Color Straw Urine Appearance Clear Urine pH 6.0 Urine Protein Negative Urine Glucose (UA) Negative Urine Ketones Negative Urine Blood 1+ H Urine Nitrite Negative Urine Bilirubin Negative Urine Urobilinogen Negative Ur Leukocyte Esterase Negative Urine RBC 1 Urine WBC None Ur Epithelial Cells Rare Urine HCG, Qual Negative 08/28/16 00:38 RBC 4.14 MCV 82.3 MCHC 32.5 RDW 14.9 MPV 8.3 Neutrophils % 59.6 Lymphocytes % 32.1 D Monocytes % 7.3 Eosinophils % 0.7 D Basophils % 0.3 - Medications Given in the ED: ED Medications Discontinued Medications Generic Name Dose Route Start Last Admin Trade Name Freq PRN Reason Stop Dose Admin Hydromorphone HCl 1 mg 08/28/16 00:50 08/28/16 01:34 Dilaudid Injection - IVPUSH 08/28/16 00:51 1 mg ONCE ONE Administration Sodium Chloride 1,000 mls @ 1,000 mls/hr 08/28/16 00:34 08/28/16 01:34 Normal Saline - IV 08/28/16 01:33 1,000 mls/hr ASDIR STA Administration <Mary Galan - Last Filed: 08/28/16 04:16> - LABORATORY CBC & Chemistry Diagram: 08/28/16 00:38 08/28/16 00:38 <Barak Bhatt - Last Filed: 08/28/16 06:32> Progress Note - Progress Note Progress Note: Pt req for Dr. Goldstein/general surgery [phone] PMD: Dr. Gatito Truong [phone] Galan/ER Attending. 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 Chávez/covering for Dr. Gatito Truong <Barak Bhatt - Last Filed: 08/28/16 06:32> Medical Decision Making - Medical Decision Making 08/28/16 04:17 focused ED ultrasound transabdominal gallbladder, with curvilinear probe. scanned in two planes with tomlin scale and color doppler. Findings: large amount of stones, no wall edema or pericholecystic fluid. neg sonographic tompkins's. no hydrops. anterior gallbladder wall measured 3 mm. CBD measured 3.8 mm. impression: cholelithiasis sandra <Mary Galan - Last Filed: 08/28/16 04:16> *DC/Admit/Observation/Transfer <Mary Galan - Last Filed: 08/28/16 04:16> - Discharge Dispostion Admit: Yes <Barak Bhatt - Last Filed: 08/28/16 06:32> Diagnosis at time of Disposition: Cholecystitis Cholelithiasis Qualifiers: Cholelithiasis location: gallbladder Cholecystitis presence: without cholecystitis Biliary obstruction: without biliary obstruction Qualified Code(s) : K80.20 - Calculus of gallbladder without cholecystitis without obstruction - Discharge Dispostion Condition at time of disposition: Fair - Referrals Referrals: Gatito Truong MD [Primary Care Provider] -
[2016-08-28] MEDS ORDERED: SODIUM CHLORIDE 1,000 ML IV STA (00:34)
[2016-08-28 00:47] LABS: BASOPHIL 0.3 % (0-2.0); EOSINOPHIL 0.7 % (0-4.5); MCH 26.7 pg (25.7-33.7); MCHC 32.5 g/dl (32.0-36.0); MEAN CELL VOLUME 82.3 fl (80-96); MEAN PLT VOLUME 8.3 fl (7.5-11.1); NEUTROPHILS 59.6 % (42.8-82.8); PLATELET COUNT 240 K/MM3 (134-434); RDW 14.9 % (11.6-15.6); WHITE BLOOD COUNT 14.5 K/mm3 (4.0-10.0)
[2016-08-28] MEDS ORDERED: HYDROmorphone HCL CARPU-JECT 1 MG/1 ML DISP.SYRIN IVPUSH ONE (00:50)
[2016-08-28 01:14] LABS: ALBUMIN 3.4 g/dl (3.4-5.0); ALK PHOS 71 U/L (45-117); AMYLASE 72 U/L (25-115); ANION GAP 8 (8-16); BILIRUBIN,TOTAL 0.3 mg/dL (0.2-1.0); CALCIUM 8.4 mg/dL (8.5-10.1); CO2 28 mmol/L (21-32); CREATININE 0.7 mg/dL (0.55-1.02); GLUCOSE,RANDOM 88 mg/dL (74-106); SGOT/AST 16 U/L (15-37); SGPT/ALT 31 U/L (12-78); TOT PROT 7.1 g/dl (6.4-8.2)
[2016-08-28] MEDS ORDERED: HYDROmorphone HCL CARPU-JECT 1 MG/1 ML DISP.SYRIN ONE (01:14)
[2016-08-28 01:37] LABS: URINE APPEARANCE CLEAR; URINE BILIRUBIN NEGATIVE (NEGATIVE); URINE COLOR STRAW; URINE GLUCOSE (UA) NEGATIVE (NEGATIVE); URINE KETONE NEGATIVE (NEGATIVE); URINE LEUK ESTERASE NEGATIVE (NEGATIVE); URINE NITRITE NEGATIVE (NEGATIVE); URINE PROTEIN NEGATIVE (NEGATIVE); URINE UROBILINOGEN NEGATIVE E.U./dl (0.2-1.0)
[2016-08-28 01:45] LABS: URINE BLOOD 1+ (NEGATIVE)
[2016-08-28 01:59] LABS: URINE RBC 1 /hpf (0-3)
[2016-08-28] MEDS ORDERED: PIPERACILLIN/TAZOB 3.375 GM/50 ML PRE-DOCKED IV ONE (05:58)
[2016-08-28] MEDS ORDERED: PIPERACILLIN/TAZOB 3.375 GM 50 ML IVPB ONE (06:07)
[2016-08-28] MEDS ORDERED: SODIUM CHLORIDE 1,000 ML IV ONE (07:21)
[2016-08-28 09:06] LABS: INR 1.07 (0.82-1.09); PROTHROMBIN TIME (PATIENT) 11.8 SEC (9.98-11.88)
--- NOTE | 2016-08-28 10:35 | CONS ---
SURGICAL CONSULTATION DATE OF CONSULTATION: 08/28/2016 REFERRING PHYSICIAN: Gatito Truong MD REASON FOR REFERRAL: Cholelithiasis, symptomatic biliary disease, chronic cholecystitis. BRIEF HISTORY: This is a 31-year-old female with a known history of having cholelithiasis. She was in the emergency department in the early part of August with complaints of biliary disease and underwent an ultrasound that demonstrated cholelithiasis. She was told to undergo a laparoscopic cholecystectomy. However, patient failed to do so due to the fact of personal issues, and she wanted to wait until her son was done with school. Son finished school yesterday. Now, she presents to the emergency room with right upper quadrant discomfort. She also complains that the pain is 9/10, and it radiates to the right side and right back. She underwent routine blood work in the emergency room. The LFTs are normal. Her white count is mildly elevated at 14,000. Amylase and lipase within normal limits as well. Currently, the patient is on the floor. She has no complaints of pain. She has had no nausea, no vomiting. She has not had any pain medicine for the past 6 hours. PAST MEDICAL HISTORY: She denies coronary disease, hypertension, and diabetes. PAST SURGICAL HISTORY: Open appendectomy. MEDICATIONS: None. ALLERGIES: None. SOCIAL HISTORY: Patient does not smoke or drink. PHYSICAL EXAMINATION: HEENT: There is no icterus. Abdomen: Mildly obese, soft, nontender, nondistended. Ultrasound performed in the emergency room demonstrates stones, gallbladder wall 3 mm. No edema or pericholecystic fluid. IMPRESSION/PLAN: Suspect biliary colic. Cannot rule out early cholecystitis: This is a 31-year-old female with biliary disease. She presented to the emergency room with complaints of having pain in the right upper quadrant and radiation to the right back. Based on her blood work, there is no evidence of choledocholithiasis. Her physical exam at this time is fairly benign. Patient will be treated for acute cholecystitis with IV antibiotics and bowel rest. We will give the patient an option to proceed with a laparoscopic cholecystectomy during this admission versus semi-elective scheduling of the procedure. The indications, alternatives, and complications of the procedure are discussed. Questions answered. We will plan to obtain written consent the day of surgery. Tentatively, the patient will be scheduled for Tuesday for laparoscopic cholecystectomy. Thank you for allowing me to participate in the care of your patient. ABHAY REAL M.D. GOPAL/[id number] cc: Gatito Truong MD
[2016-08-28] MEDS: AMPICILLIN NA/SULBACTAM NA 3 GM in SODIUM CHLORIDE 100 ML IVPB SCH ×3 (13:06→20:30)
[2016-08-28] MEDS ORDERED: LEVOFLOXACIN 500 MG IVPB 100 ML IVPB SCH (18:15)
[2016-08-28] MEDS: DEXTROSE 5%-0.45% SALINE 1,000 ML IV SCH (21:36)
[2016-08-28] MEDS: morphine CARPU-JECT 2 MG/1 ML DISP.SYRIN IVPUSH PRN (21:40)
--- NOTE | 2016-08-29 01:25 | HP ---
Admitting History and Physical - Admission History of Present Illness: 31-year-old female with a history of cholelithiasis presents to the emergency department complaining of right upper quadrant discomfort. Pain is described as 9/10 sharp intermittent discomfort which radiates to the right side of her back with nausea but denies vomiting. Pain is exacerbated while eating and there are no alleviating factors. Patient denies fever, chills, chest pain, shortness of breath, urinary symptoms: Frequency/urgency/hesitancy, hematuria. Patient had an ultrasound/limited on 08/16/2016 which shows cholelithiasis. Patient was told by her GI md/Dr. Lyons that she will need a laparoscopic cholecystectomy but the patient kept deferring at until her 6-year-old son was done with the school year which was yesterday. - Past Medical History Gastrointestinal: Yes: Other (Gallstones) ...LMP: 08/14/16 ...: No Infectious Disease: Yes: Other (frequent UTIs) - Past Surgical History Past Surgical History: Yes: Appendectomy - Smoking History Smoking history: Never smoked Have you smoked in the past 12 months: No Aproximately how many cigarettes per day: 0 - Alcohol/Substance Use Hx Alcohol Use: No Home Medications - Allergies Allergies/Adverse Reactions: Allergies Allergy/AdvReac Type Severity Reaction Status Date / Time No Known Allergies Allergy Verified 08/28/16 00:16 - Home Medications Home Medications: Ambulatory Orders NK [No Known Home Medication] 08/28/16 Family Disease History - Family Disease History Family History: Unremarkable Review of Systems - Review of Systems Constitutional: reports: No Symptoms Eyes: reports: No Symptoms HENT: reports: No Symptoms Neck: reports: No Symptoms Cardiovascular: reports: No Symptoms Respiratory: reports: No Symptoms Gastrointestinal: reports: Abdominal Pain, Nausea Genitourinary: reports: No Symptoms Physical Examination Vital Signs: Vital Signs Temperature 98.2 F 08/28/16 19:04 Pulse Rate 79 08/28/16 19:04 Respiratory Rate 20 08/28/16 21:00 Blood Pressure 97/58 08/28/16 19:04 O2 Sat by Pulse Oximetry (%) 98 08/28/16 21:00 Constitutional: Yes: No Distress Eyes: Yes: WNL HENT: Yes: WNL Neck: Yes: WNL, Supple Cardiovascular: Yes: WNL, Regular Rate and Rhythm Respiratory: Yes: WNL, Regular, CTA Bilaterally Gastrointestinal: Yes: Normal Bowel Sounds, Soft, Other (minimal RUQ tenderness (-) guarding/rebound) Musculoskeletal: Yes: WNL Extremities: Yes: WNL Edema: No Neurological: Yes: WNL, Alert, Oriented ...Motor Strength: WNL Problem List - Problems (1) Abdominal pain Assessment/Plan: Due to acute cholecystitis Cont NPO/IVF Surgical consult noted Monitor labs Cont IV antibxs No medical contraindication for surgery Will get GI consult Code(s): R10.9 - UNSPECIFIED ABDOMINAL PAIN
[2016-08-29] MEDS: AMPICILLIN NA/SULBACTAM NA 3 GM in SODIUM CHLORIDE 100 ML IVPB SCH ×4 (02:19→20:41)
[2016-08-29] MEDS ORDERED: PT OWN MED DRAWER 7, Y5N ONE ×2 (08:20→13:59)
[2016-08-29] MEDS: DEXTROSE 5%-0.45% SALINE 1,000 ML IV SCH ×2 (08:25→20:41)
[2016-08-29 09:31] LABS: BASOPHIL 0.6 % (0-2.0); EOSINOPHIL 1.6 % (0-4.5); MCH 27.4 pg (25.7-33.7); MCHC 32.9 g/dl (32.0-36.0); MEAN CELL VOLUME 83.3 fl (80-96); MEAN PLT VOLUME 8.7 fl (7.5-11.1); NEUTROPHILS 53.5 % (42.8-82.8); PLATELET COUNT 207 K/MM3 (134-434); RDW 15.3 % (11.6-15.6); WHITE BLOOD COUNT 7.9 K/mm3 (4.0-10.0)
[2016-08-29 09:39] LABS: ALBUMIN 3.1 g/dl (3.4-5.0); ALK PHOS 62 U/L (45-117); BILIRUBIN,TOTAL 0.5 mg/dL (0.2-1.0); SGOT/AST 26 U/L (15-37); SGPT/ALT 34 U/L (12-78); TOT PROT 6.4 g/dl (6.4-8.2)
[2016-08-29 09:40] LABS: BILIRUBIN,DIRECT < 0.1 mg/dL (0.0-0.2)
--- NOTE | 2016-08-29 14:29 | PN ---
Progress Note (short form) - Note Progress Note: GI CONSULTATION: PLEASE SEE COMPLETE DICTATION PT KNOWN TO DR MURRAY SEE OFFICE NOTED AND EGD NOTE ATTATCHED TO CHART 31F THYROID D/O CONTINUED INTERMITTENT RUQ COLIC TYPE PAIN HAD NORMAL EGD EXAM WITH HPYLORI GASTRITIS HAD BEEN REFERRED FOR L.C., BUT PT HAD DEFERRED NOW WITH RECURRENT PAIN GALLSTONES/ NORMAL LFT'S ON ABX FOR SURGICAL EVALUATION THANKSJAIR MD
--- NOTE | 2016-08-29 16:12 | CONS ---
DATE OF CONSULTATION: 08/29/2016 I was asked by Dr. Princess Chávez to evaluate this patient for abdominal pain. The patient is a 31-year-old woman, who does not speak any Persian whatsoever, therefore, it is a very limited history. However, she had been seen in the office by my partner, Dr. Lyons, on August 05. At that time, he noted that she continued to have abdominal pain in the right upper quadrant radiating to the back and the scapula. No vomiting. She was noted to have elevated transaminases and C-reactive protein. She reported bloating and constipation, and she had a history of hypothyroidism and ureteral obstruction, status post appendectomy, section, and ureteral stent. The patient underwent a upper endoscopy. He felt that she had biliary colic as the cause of pain but thought that prior to surgery it would be prudent to do an endoscopy to rule out an ulcer or erosive gastritis, and ordered an EGD and sonogram. The patient was started on ranitidine and Gaviscon. On August 24, 2016, in the office she underwent upper endoscopy and was noted to have a completely normal examination. It appears she was noted to have H. pylori and was advised to undergo treatment. In addition, the patient was referred for gallbladder surgery as he did not believe that the gastritis would not account for her severe pain. She had a sonogram with gallstones and he felt that to be the culprit. She now comes in to the hospital with subacute onset of continued abdominal pain that is in the right upper quadrant and goes through to the back with some nausea and vomiting. She was not having any fevers, chills, or sweats. When she came in to the hospital, she was noted to have a white count of 14.5 and she was admitted for treatment and started on antibiotics. The patient reports that the pain when she came in was 9/10, sharp, intermittent, and it was exacerbated by eating. Nothing was making it feel better. Apparently prior, the patient reports that she was recommended to have a laparoscopic cholecystectomy but she deferred it until her 6-year-old son was finished with his school year. Other than that, there is really no other additional history. The patient is from [facility], she is , she is German speaking. She does not smoke. She rarely drinks. Does not use any drugs. Her father was noted to have disease of the cervical spine. Her mother, malignant tumor of the breast and kidney stones. The patient has no known drug allergies and was on no medications. She weighed 160 pounds when seen in the office. Currently, in the hospital, in terms of medications, she is getting Unasyn, IV fluid, and morphine. PHYSICAL EXAMINATION: She is in absolutely no acute distress. She is moving about easily. She is afebrile. Vital signs are stable. Her blood pressure is 102/49. The pulse is in the 60s. Sclerae are anicteric. Neck is supple. Dentition is good. The mouth is moist. The heart is regular. The abdomen has bowel sounds. The abdomen is very soft. There is tenderness to deep palpation in the right upper quadrant and midepigastric region. There are no masses, rebound, or guarding. Her lab data is notable in that today her CBC is normal. Her white count on admission is noted with 14.5000; it is now 7000. Her hemoglobin and hematocrit is completely stable and her chemistries are normal. Her liver enzymes: minimal elevation of ALT at 31, but otherwise AST 16, alkaline phosphatase 71. Amylase, lipase, bilirubin all normal. SMA-7 all normal. In terms of imaging, it looks like the patient has not had any imaging on this admission; however, as an outpatient on August 16, she did have a sonogram revealing a fatty liver and multiple gallstones in the gallbladder. There was no evidence of any ductal dilatation. She also had a HIDA scan on June 15 and the patient had normal gallbladder ejection fraction and there was no evidence of acute cholecystitis back in June. So it is my impression that the patient is a 31-year-old woman without significant medical history, just hypothyroidism, who had been followed by Dr. Lyons for dyspepsia, right upper quadrant pain that is intermittent, felt to be due to biliary colic due to gallstones. She has had numerous attacks, has been referred for laparoscopic cholecystectomy since her upper endoscopy was completely unremarkable. At this time, would recommend a surgical consultation, continuing to keep her either n.p.o. as she is going to go for surgery, or on a clear liquid diet, with observation. At the present time, her liver enzymes are normal and there is no evidence or indication for preoperative biliary imaging. We will continue to be available to aid in the management of this patient. YU ADAM M.D. JERRY/[id number]
--- NOTE | 2016-08-29 21:37 | EKG ---
Test Reason : Blood Pressure : / mmHG Vent. Rate : 071 BPM Atrial Rate : 071 BPM P-R Int : 152 ms QRS Dur : 082 ms QT Int : 436 ms P-R-T Axes : 045 018 035 degrees QTc Int : 473 ms NORMAL SINUS RHYTHM NONSPECIFIC T WAVE ABNORMALITY BORDERLINE PROLONGED QT ABNORMAL ECG NO PREVIOUS ECGS AVAILABLE Confirmed by MAYA MARTIN, TRACY (2016) on 08/29/2016 9:36:56 PM Referred By: Confirmed By:TRACY TREJO MD
[2016-08-30] MEDS: AMPICILLIN NA/SULBACTAM NA 3 GM in SODIUM CHLORIDE 100 ML IVPB SCH ×4 (02:30→20:41)
[2016-08-30] MEDS: morphine CARPU-JECT 2 MG/1 ML DISP.SYRIN IVPUSH PRN (02:33)
[2016-08-30 08:12] LABS: BASOPHIL 0.5 % (0-2.0); EOSINOPHIL 1.6 % (0-4.5); MCHC 33.5 g/dl (32.0-36.0); MEAN CELL VOLUME 83.4 fl (80-96); MEAN PLT VOLUME 8.4 fl (7.5-11.1); NEUTROPHILS 55.1 % (42.8-82.8); PLATELET COUNT 216 K/MM3 (134-434); RDW 15.2 % (11.6-15.6); WHITE BLOOD COUNT 8.9 K/mm3 (4.0-10.0)
[2016-08-30] MEDS: DEXTROSE 5%-0.45% SALINE 1,000 ML IV SCH ×2 (08:50→13:32)
[2016-08-30 08:51] LABS: ALBUMIN 3.2 g/dl (3.4-5.0); GLUCOSE,RANDOM 89 mg/dL (74-106); SGOT/AST 47 U/L (15-37); SGPT/ALT 54 U/L (12-78)
[2016-08-30 09:00] LABS: ALK PHOS 65 U/L (45-117); ANION GAP 8 (8-16); BILIRUBIN,TOTAL 0.7 mg/dL (0.2-1.0); CALCIUM 8.4 mg/dL (8.5-10.1); CO2 27 mmol/L (21-32); CREATININE 0.5 mg/dL (0.55-1.02); TOT PROT 6.7 g/dl (6.4-8.2)
--- NOTE | 2016-08-30 10:17 | PN ---
Progress Note (short form) - Note Progress Note: surgery pt seen and examined. still in pain. afebrile abd-soft, localized ruq tenderness Plan- acute cholecystitis not responding to medical management. will proceed with surgery.
--- NOTE | 2016-08-30 10:18 | OP ---
Operative Note - Note: Operative Date: 08/30/16 Pre-Operative Diagnosis: acute cholecysititis, cholelithiasis Operation: laparoscopic cholecystectomy, lavage Findings: pale, edematous gb Post-Operative Diagnosis: Same as Pre-op Surgeon: Evan Goldstein Anesthesiologist/TEACHING DIETITIAN: Evan Josue Anesthesia: General Specimens Removed: gb Estimated Blood Loss (mls): 10
[2016-08-30] MEDS ORDERED: oxyCODONE HCL 5 MG TABLET PO PRN (10:21)
[2016-08-30] MEDS ORDERED: ACETAMINOPHEN 325 MG TABLET (FP) PO PRN (10:21)
[2016-08-30] MEDS ORDERED: ROCURONIUM BROMIDE 50 MG/5 ML VIAL ONE (10:27)
[2016-08-30] MEDS ORDERED: LIDOCAINE HCL/PF 2% SDV 5ML VIAL ONE (10:27)
[2016-08-30] MEDS ORDERED: PROPOFOL 20 ML ONE ×2 (10:27)
[2016-08-30] MEDS ORDERED: MIDAZOLAM HCL 2 MG/2 ML SINGLE DOSE VIAL ONE (10:30)
[2016-08-30] MEDS ORDERED: KETOROLAC TROMETHAMINE 30 MG/1 ML VIAL ONE (11:11)
[2016-08-30] MEDS ORDERED: DEXAMETHASONE SOD PHOSPHATE 4 MG/1 ML VIAL ONE (11:11)
[2016-08-30] MEDS ORDERED: NEOSTIGMINE METHYLSULFATE 0.5 MG/ML - 10 ML MDV ONE (11:12)
[2016-08-30] MEDS ORDERED: GLYCOPYRROLATE 0.2 MG/1 ML VIAL ONE ×2 (11:12)
[2016-08-30] MEDS ORDERED: ONDANSETRON 4 MG/2 ML VIAL IVPUSH PRN (11:44)
[2016-08-30] MEDS ORDERED: PROMETHAZINE HCL 25 MG/1 ML VIAL IVPUSH PRN (11:44)
[2016-08-30] MEDS: morphine CARPU-JECT 4 MG/1 ML DISP.SYRIN IVPB PRN ×3 (13:28→22:59)
[2016-08-30] MEDS: oxyCODONE HCL 5 MG TABLET PO PRN ×2 (17:42→22:17)
[2016-08-30] MEDS ORDERED: PT OWN MED DRAWER 7, Y5N ONE (20:33)
--- NOTE | 2016-08-30 20:56 | PN ---
Progress Note, Physician History of Present Illness: Pt tolerated surgery - Current Medication List Current Medications: Active Medications Acetaminophen (Tylenol -) 650 mg PO Q4H PRN PRN Reason: FEVER OR PAIN Enoxaparin Sodium (Lovenox -) 40 mg SQ DAILY RUBY Fentanyl (Sublimaze Injection -) 50 mcg IVPUSH [id number] PRN PRN Reason: PAIN Stop: 09/02/16 11:45 Last Admin: 08/30/16 12:14 Dose: 50 mcg Pantoprazole Sodium 40 mg/ (Sodium Chloride) 100 mls @ 200 mls/hr IVPB DAILY RUBY Ampicillin Sodium/Sulbactam (Sodium 3 gm/ Sodium Chloride) 100 mls @ 200 mls/ hr IVPB Q6H-IV RUBY Last Admin: 08/30/16 20:41 Dose: 200 mls/hr Dextrose/Sodium Chloride (D5-1/2ns -) 1,000 mls @ 100 mls/hr IV ASDIR RUBY Last Admin: 08/30/16 13:32 Dose: 100 mls/hr Morphine Sulfate (Morphine Injection -) 4 mg IVPB Q3H PRN PRN Reason: MODERATE PAIN Last Admin: 08/30/16 19:06 Dose: 4 mg Oxycodone HCl (Roxicodone -) 7.5 mg PO Q4H PRN PRN Reason: PAIN Oxycodone HCl (Roxicodone -) 10 mg PO Q4H PRN PRN Reason: SEVERE PAIN Stop: 08/31/16 11:43 Last Admin: 08/30/16 17:42 Dose: 10 mg - Objective Vital Signs: Vital Signs Temperature 97.7 F 08/30/16 19:49 Pulse Rate 60 08/30/16 19:49 Respiratory Rate 20 08/30/16 19:49 Blood Pressure 106/62 08/30/16 19:49 O2 Sat by Pulse Oximetry (%) 100 08/30/16 13:30 HENT: Yes: WNL Neck: Yes: WNL, Supple Cardiovascular: Yes: WNL, Regular Rate and Rhythm Respiratory: Yes: WNL, Regular, CTA Bilaterally Gastrointestinal: Yes: Distention, Tenderness Labs: CBC, BMP 08/30/16 06:00 08/30/16 06:00 INR, PTT INR 1.07 (0.82-1.09) 06/24/17 07:30 Problem List - Problems (1) Abdominal pain Assessment/Plan: Due to acute cholecystitis S/P lap choley Cont IVF Advance diet as per surgery Pt encouraged to ambulateSurgical consult noted Cont IV antibxs Code(s): R10.9 - UNSPECIFIED ABDOMINAL PAIN
[2016-08-30] MEDS: ONDANSETRON 4 MG/2 ML VIAL IVPB PRN (23:13)
[2016-08-31] MEDS ORDERED: PT OWN MED DRAWER 7, Y5N ONE ×3 (01:43→14:35)
[2016-08-31] MEDS: AMPICILLIN NA/SULBACTAM NA 3 GM in SODIUM CHLORIDE 100 ML IVPB SCH ×3 (02:41→14:54)
[2016-08-31] MEDS: oxyCODONE HCL 5 MG TABLET PO PRN (03:43)
--- NOTE | 2016-08-31 07:50 | OP ---
DATE OF OPERATION: 08/30/2016 PREOPERATIVE DIAGNOSES: Acute cholecystitis, cholelithiasis. POSTOPERATIVE DIAGNOSES: Acute cholecystitis, cholelithiasis. PROCEDURE: Laparoscopic cholecystectomy, lavage. SURGEON: Evan Goldstein DO FRYER OPERATOR: None. ANESTHESIOLOGIST: Evan Josue MD (general) SPECIMEN: Gallbladder. INTRAOPERATIVE FINDINGS: Very pale, edematous gallbladder with stones. BLOOD LOSS: Minimal. COMPLICATIONS: None. DRAINS: None. DISPOSITION: Recovery in stable condition. BRIEF HISTORY: This is a 31-year-old female who was admitted to [facility] through the emergency room for signs and symptoms of acute cholecystitis. Despite n.p.o. status and intravenous antibiotics, the patient did not show improvement in her pain and presents now for surgical management after failing medical therapy. DESCRIPTION OF PROCEDURE: The patient was placed in supine position. General anesthesia was initiated. The abdomen was prepped and draped in sterile fashion. A transverse incision was then made infraumbilical with scalpel used to go through skin and subcutaneous tissue. The fascia was then lifted with Ruth clamp, Veress needle was inserted, and pneumoperitoneum was created. Next, an 11-mm trocar was placed, followed by insertion of a 10-mm 0-degree laparoscope. Next, an additional 11- mm trocar was placed subxiphoid, and two 5-mm trocars were placed in the right upper quadrant, one was in mid-clavicular line and one was anterior axillary line. At this point, attention was turned toward the gallbladder. It was pale, edematous, and distended consistent with acute cholecystitis. The fundus was lifted cephalad. The infundibulum retracted laterally. The peritoneal was dissected down, exposing a small cystic duct and cystic artery. Both were clipped and divided. The gallbladder was then liberated from the liver bed using electrocautery, and hemostasis was maintained using electrocautery. At this point, the gallbladder was removed through the infraumbilical trocar site after a mild fascial dilatation, and sent to Pathology marked as specimen. A limited lavage was done. All return was clear. Trocars were removed under direct visualization, no bleeding was seen, and pneumoperitoneum was released. At this point, the fascia of the infraumbilical trocar site was then closed with multiple interrupted 0 Vicryl sutures. Of note , a small ventral hernia was noted above this incision, which was not addressed at the time of surgery. The 4 skin incisions were then closed with subcuticular Biosyn , and Dermabond dressing was placed. DO BÁRBARA PEREZ/[id number] MTDD
[2016-08-31] MEDS ORDERED: PANTOPRAZOLE SODIUM 100 ML IVPB SCH (10:00)
[2016-08-31] MEDS ORDERED: ENOXAPARIN NA (PORCINE) 40 MG/0.4 ML DISP.SYRIN SQ SCH (10:00)
[2016-08-31] MEDS: ONDANSETRON 4 MG/2 ML VIAL IVPB PRN (12:00)
[2016-08-31] MEDS: DEXTROSE 5%-0.45% SALINE 1,000 ML IV SCH (12:58)
--- NOTE | 2016-08-31 12:59 | PN ---
Progress Note (short form) - Note Progress Note: surgery pt seen and examined. feels well. voiding. ambulating. tolerating diet. afebrile abd- soft, nt, nd, incisions clean Plan- surgically stable for d/c. no abx. no narcotics. f/u in about 2 weeks. ok to shower. ok to drive. no lifting. regular diet. [phone]
--- NOTE | 2016-08-31 15:01 | PATH ---
Surgical Pathology Report Patient Name: RIK ANDERS [facility]. Rec. #: [id number] /Age/Gender: 1985 (Age: 31) / F Account: [id number] Location: [address] [place] [address]/[facility] Taken: 08/30/2016 Received: 08/30/2016 Reported: 08/31/2016 Physicians: Evon Greene M.D. Specimen(s) Received GALLBLADDER Clinical History Acute cholecystitis, cholelithiasis Final Diagnosis GALLBLADDER, CHOLECYSTECTOMY: CHRONIC CHOLECYSTITIS AND CHOLELITHIASIS. BENIGN PERICYSTIC LYMPH NODE PRESENT. Electronically Signed Frederic Nixon M.D. Gross Description Received in formalin, labeled "gallbladder," is a 8.0 x 3.0 x 2.8 cm. gallbladder with a 0.2 cm. in length portion of cystic duct attached. There is a 0.7 cm in greatest dimension possible periductal lymph node present. The outer surface is ceja tomlin and varies from smooth to shaggy. The lumen contains green, tenacious bile as well as abundant yellow irregular to fragmented choleliths ranging from 0.1-1.0 cm in greatest dimension. The mucosa is ceja and focally eroded. The wall of the gallbladder measures 0.1 cm. in thickness. Television Production Assistant sections are submitted in one cassette. 08/30/2016 [facility]08/30/2016
[2016-08-31 22:49] VITALS: BP 121/71; PULSE 83; TEMP 98.7
== END 2016-08-31 21:30 | disposition home or self-care (01) | DRG 263 ==
LOC: JER 00:06 → JERBED 06:32 → UNDOADMIN 06:36 → JERBED 06:36 → J6S 09:33
PROVIDERS: ADMIT Internal Medicine; ATTEND Internal Medicine
PROC: 0FT44ZZ Resection of Gallbladder, Percutaneous Endoscopic Approach (ICD-10-PCS; principal; 2016-08-30 12:00)
DX: K80.00 Calculus of gallbladder with acute cholecystitis without obstruction (principal); K21.9 Gastro-esophageal reflux disease without esophagitis; E03.9 Hypothyroidism, unspecified
CPT/HCPCS: 36415; 80053; 80076; 81003; 81015; 82150; 83690; 84703; 85025; 85610; 85730; 86850; 86900; 86901; 88304-TC; 93005; 93010; 94760; 99285-25

== ENCOUNTER 2016-12-07 16:38 | Emergency (ER) | payer OTHER ==
[2016-12-07 16:43] VITALS: BP 120/69; PULSE 94; TEMP 98.6; BMI 27.4
--- NOTE | 2016-12-07 16:45 | PDOC ---
Attending Attestation - Resident Resident Name: Leo Rodríguez - ED Attending Attestation I have performed the following: I have examined & evaluated the patient, The case was reviewed & discussed with the resident, I agree w/resident's findings & plan, Exceptions are as noted - HPI HPI: 12/07/16 17:06 31 yo female LMP 11/08/16 presents with lower abd pain,nausea and positive home test. Miscarriage 2 12/08/16 02:36 wnwd 31 yo female heent wnl lungs cta b/l cvs [id number] abd no rebound no guarding neuro axox3,no focal neuro deficits 12/08/16 02:37 - Physicial Exam PE: 12/08/16 02:37 please see above - Medical Decision Making 12/07/16 17:07 plan cbc,bhcg,UA probable ultrasound to confirm IUP 12/07/16 20:22 bhcg only 600 pelvic US there is NO IUP identified -need repeat bhcg in 48 hours IMP early pregnany, possible ectopic ,? recent miscarriage 12/08/16 02:36
[2016-12-07] MEDS ORDERED: ONDANSETRON 4 MG/2 ML VIAL IVPB ONE (17:01)
--- NOTE | 2016-12-07 17:01 | PDOC ---
History of Present Illness - General Chief Complaint: Vaginal Bleeding Stated Complaint: VAGINAL BLEEDING Time Seen by Provider: 12/07/16 16:44 History Source: Patient Exam Limitations: Language Barrier - History of Present Illness Initial Comments: 12/07/16 17:29 Patient is a 31F with history of recurrent UTIs here today complaining of with lower abdominal pain and pink vaginal discharge. She says that she has a positive test today as well. There has been associated nausea and headache. The pain does not radiate anywhere She has had two prior spontaneous abortions. She denies fevers, chills. LMP was 29 days ago. She denies history of STDs. Past History - Past Medical History Allergies/Adverse Reactions: Allergies Allergy/AdvReac Type Severity Reaction Status Date / Time No Known Allergies Allergy Verified 12/07/16 16:44 Home Medications: Ambulatory Orders NK [No Known Home Medication] 08/28/16 Anemia: Yes Asthma: No Cancer: No Cardiac Disorders: No CVA: No COPD: No CHF: No Dementia: No Diabetes: No GI Disorders: Yes (ACID REFLUX, GASTRITIS) Disorders: Yes (UTI, Kidney Stones) HTN: No Hypercholesterolemia: No Kidney Stones: Yes Liver Disease: No Seizures: No Thyroid Disease: No - Surgical History Abdominal Surgery: No Appendectomy: Yes Cardiac Surgery: No Cholecystectomy: Yes Lung Surgery: No Neurologic Surgery: No Orthopedic Surgery: No - Immunization History Td Vaccination: Yes TDAP Vaccination: Yes Immunization Up to Date: Yes - Suicide/Smoking/Psychosocial Hx Smoking Status: No Smoking History: Never smoked Have you smoked in the past 12 months: No Number of Cigarettes Smoked Daily: 0 Information on smoking cessation initiated: No Hx Alcohol Use: No Drug/Substance Use Hx: No Substance Use Type: None Hx Substance Use Treatment: No Review of Systems - Review of Systems Comments:: 12/07/16 17:32 GENERAL/CONSTITUTIONAL: No fever or chills. No weakness. HEAD, EYES, EARS, NOSE AND THROAT: No change in vision. No ear pain or discharge. No sore throat. CARDIOVASCULAR: No chest pain. Positive for shortness of breath. RESPIRATORY: No cough, wheezing, or hemoptysis. GASTROINTESTINAL: Positive for nausea. Negative for vomiting, diarrhea or constipation. GENITOURINARY: Positive for dysuria and frequency. MUSCULOSKELETAL: No joint or muscle swelling or pain. No neck or back pain. SKIN: No rash NEUROLOGIC: No headache, vertigo, loss of consciousness, or change in strength/ sensation. ENDOCRINE: No increased thirst. No abnormal weight change HEMATOLOGIC/LYMPHATIC: No anemia, easy bleeding, or history of blood clots. ALLERGIC/IMMUNOLOGIC: No hives or skin allergy. *Physical Exam - Vital Signs Last Vital Signs Temp Pulse Resp BP Pulse Ox 98.6 F 94 H 18 120/69 100 12/07/16 16:41 12/07/16 16:41 12/07/16 16:41 12/07/16 16:41 12/07/16 16:41 - Physical Exam Comments: 12/07/16 17:36 GENERAL: Awake, alert, and fully oriented, in no acute distress HEAD: No signs of trauma, normocephalic, atraumatic EYES: PERRLA, EOMI, sclera anicteric, conjunctiva clear ENT: Auricles normal inspection, hearing grossly normal, nares patent, oropharynx clear without exudates. Moist mucosa NECK: Normal ROM, supple, no lymphadenopathy, JVD, or masses LUNGS: No distress, speaks full sentences, clear to auscultation bilaterally HEART: Regular rate and rhythm, normal S1 and S2, no murmurs, rubs or gallops, peripheral pulses normal and equal bilaterally. ABDOMEN: Soft, slightly tender in epigastrium, no tenderness in suprapubic region. normoactive bowel sounds. No guarding, no rebound. No masses EXTREMITIES: Normal inspection, Normal range of motion, no edema. No clubbing or cyanosis. NEUROLOGICAL: Cranial nerves II through XII grossly intact. Normal speech, normal gait, no focal sensorimotor deficits SKIN: Warm, Dry, normal turgor, no rashes or lesions noted. : Small amount of white discharge, no blood seen, os is closed. No cervical motion tenderness, no masses or abnormalities felt. ED Treatment Course - LABORATORY CBC & Chemistry Diagram: 12/07/16 17:20 Medical Decision Making - Medical Decision Making 12/07/16 17:45 Patient is a 31F with history of recurrent UTIs here today complaining of a positive test and pink vaginal discharge. Exam shows no lower abdominal pain. No bloody discharge on exam. Vital signs stable. Will evaluate with labs and ultrasound. Differential diagnosis includes, but is not limited to : IUP, ectopic, UTI, threatened , complete , missed . 12/07/16 18:17 Laboratory Tests 12/07/16 12/07/16 17:20 17:20 WBC 12.5 H D Hgb 11.8 Hct 35.4 Plt Count 268 D Beta HCG, Quant 602.2 CBC shows leukocytosis. Beta quant in discriminatory zone. 12/07/16 18:52 Patient has O+, no need for rhogam 12/07/16 19:[address] Bailey. Pending ultrasound and UA WBC count. *DC/Admit/Observation/Transfer Diagnosis at time of Disposition: Qualifiers: Weeks of gestation: less than 8 weeks Qualified Code(s): Z3A.01 - Less than 8 weeks gestation of - Referrals Referrals: Gatito Truong MD [Primary Care Provider] -
[2016-12-07] MEDS ORDERED: ACETAMINOPHEN 325 MG TABLET (FP) PO ONE (17:03)
[2016-12-07] MEDS ORDERED: SODIUM CHLORIDE 1,000 ML IV STA (17:04)
[2016-12-07] MEDS ORDERED: ONDANSETRON 4 MG/2 ML VIAL ONE (17:07)
[2016-12-07] MEDS ORDERED: ACETAMINOPHEN 325 MG TABLET (FP) ONE (17:07)
[2016-12-07 17:29] LABS: BASOPHIL 0.5 % (0-2.0); MCH 27.5 pg (25.7-33.7); MCHC 33.4 g/dl (32.0-36.0); MEAN CELL VOLUME 82.6 fl (80-96); MEAN PLT VOLUME 8.3 fl (7.5-11.1); NEUTROPHILS 66.2 % (42.8-82.8); PLATELET COUNT 268 K/MM3 (134-434); RDW 15.2 % (11.6-15.6); WHITE BLOOD COUNT 12.5 K/mm3 (4.0-10.0)
[2016-12-07 17:41] LABS: INR 1.05 (0.82-1.09); PROTHROMBIN TIME (PATIENT) 11.6 SEC (9.98-11.88)
[2016-12-07 18:27] LABS: URINE APPEARANCE CLEAR; URINE BILIRUBIN NEGATIVE (NEGATIVE); URINE BLOOD 1+ (NEGATIVE); URINE COLOR STRAW; URINE GLUCOSE (UA) NEGATIVE (NEGATIVE); URINE KETONE NEGATIVE (NEGATIVE); URINE NITRITE POSITIVE (NEGATIVE); URINE PROTEIN NEGATIVE (NEGATIVE); URINE UROBILINOGEN NEGATIVE mg/dL (0.2-1.0)
[2016-12-07 18:30] LABS: URINE LEUK ESTERASE 1+ (NEGATIVE)
[2016-12-07 20:09] LABS: URINE BACTERIA RARE /hpf (NONE SEEN); URINE RBC <1 /hpf (0-3); URINE WBC 9 /hpf (3-5)
--- NOTE | 2016-12-07 20:30 | PDOC ---
*Physical Exam - Vital Signs Last Vital Signs Temp Pulse Resp BP Pulse Ox 98.6 F 94 H 18 120/69 100 12/07/16 16:41 12/07/16 16:41 12/07/16 16:41 12/07/16 16:41 12/07/16 16:41 ED Treatment Course - LABORATORY CBC & Chemistry Diagram: 12/07/16 17:20 - ADDITIONAL ORDERS Additional order review: Laboratory Results 12/07/16 12/07/16 12/07/16 18:05 17:20 17:20 PT with INR INR Beta HCG, Quant 602.2 Urine Color Straw Urine Appearance Clear Urine pH 6.[address] <= 1.005 Urine Protein Negative Urine Glucose (UA) Negative Urine Ketones Negative Urine Blood 1+ H Urine Nitrite Positive Urine Bilirubin Negative Urine Urobilinogen Negative Urine HCG, Qual Positive Blood Type O POSITIVE Antibody Screen Negative 12/07/16 17:20 PT with INR 11.60 INR 1.05 Beta HCG, Quant Urine Color Urine Appearance Urine pH Ur Specific [address] Urine Protein Urine Glucose (UA) Urine Ketones Urine Blood Urine Nitrite Urine Bilirubin Urine Urobilinogen Urine HCG, Qual Blood Type Antibody Screen 12/07/16 17:20 RBC 4.29 MCV 82.6 MCHC 33.4 RDW 15.2 MPV 8.3 Neutrophils % 66.2 D Lymphocytes % 26.0 D Monocytes % 6.3 Eosinophils % 1.0 Basophils % 0.5 - Medications Given in the ED: ED Medications Discontinued Medications Generic Name Dose Route Start Last Admin Trade Name Freq PRN Reason Stop Dose Admin Acetaminophen 650 mg 12/07/16 17:03 12/07/16 17:33 Tylenol - PO 12/07/16 17:04 650 mg ONCE ONE Administration Sodium Chloride 1,000 mls @ 1,000 mls/hr 12/07/16 17:04 12/07/16 17:33 Normal Saline - IV 12/07/16 18:03 1,000 mls/hr ASDIR STA Administration Ondansetron HCl 4 mg 12/07/16 17:01 12/07/16 17:33 Zofran Injection IVPB 12/07/16 17:02 4 mg ONCE ONE Administration *DC/Admit/Observation/Transfer Diagnosis at time of Disposition: Urinary tract infection Qualifiers: Weeks of gestation: less than 8 weeks Qualified Code(s): Z3A.01 - Less than 8 weeks gestation of - Discharge Dispostion Disposition: HOME Condition at time of disposition: Stable - Referrals Referrals: Gatito Truong MD [Primary Care Provider] - - Patient Instructions Printed Discharge Instructions: DI for -- Discomforts and Remedies, DI for Urinary Tract Infection (UTI) Additional Instructions: please get a repeat BHCG in 48 hours return for any worsening symptoms - Post Discharge Activity
== END 2016-12-07 20:44 | disposition home or self-care (01) ==
LOC: JER 16:38
PROC: 3E033GC Introduction of Other Therapeutic Substance into Peripheral Vein, Percutaneous Approach (ICD-10-PCS; principal; 2016-12-07)
DX: O23.41 Unspecified infection of urinary tract in pregnancy, first trimester (principal); Z3A.01 Less than 8 weeks gestation of pregnancy
CPT/HCPCS: 36415; 76817-TC; 81003; 81015; 84702; 84703; 85025; 85610; 86850; 86900; 86901; 96374; 99283-25

== ENCOUNTER 2017-01-15 00:51 | Emergency (ER) | payer OTHER ==
--- NOTE | 2017-01-15 00:55 | PDOC ---
History of Present Illness - General Stated Complaint: ABDOMINAL PAIN/10WKS Time Seen by Provider: 01/15/17 00:53 History Source: Patient - History of Present Illness Travel History: No Initial Comments: 01/16/17 00:12 31-year-old female presents to the emergency department complaining of sore throat 3 days without fever, chills, nausea/vomiting, headache, dizziness, lightheadedness, neck pains, difficulty swallowing, chest pain, shortness of breath. Throat is described as 4/10 sore nonradiating intermittent discomfort. Pain is alleviated with Tylenol and there are no exacerbating factors. Past History - Past Medical History Allergies/Adverse Reactions: Allergies Allergy/AdvReac Type Severity Reaction Status Date / Time No Known Allergies Allergy Verified 01/15/17 01:00 Home Medications: Ambulatory Orders Cephalexin Monohydrate [Keflex -] 500 mg PO BID #14 capsule 12/07/16 Amoxicillin - [Amoxicillin 875mg Tablet -] 875 mg PO BID #14 tab 01/15/17 Anemia: Yes Asthma: No Cancer: No Cardiac Disorders: No CVA: No COPD: No CHF: No Dementia: No Diabetes: No GI Disorders: Yes (ACID REFLUX, GASTRITIS) Disorders: Yes (UTI, Kidney Stones) HTN: No Hypercholesterolemia: No Kidney Stones: Yes Liver Disease: No Seizures: No Thyroid Disease: No - Surgical History Abdominal Surgery: No Appendectomy: Yes Cardiac Surgery: No Cholecystectomy: Yes Lung Surgery: No Neurologic Surgery: No Orthopedic Surgery: No - Reproductive History Para: 1 - Immunization History Td Vaccination: Yes TDAP Vaccination: Yes Immunization Up to Date: Yes - Suicide/Smoking/Psychosocial Hx Smoking Status: No Smoking History: Never smoked Have you smoked in the past 12 months: No Number of Cigarettes Smoked Daily: 0 Hx Alcohol Use: No Drug/Substance Use Hx: No Substance Use Type: None Hx Substance Use Treatment: No Review of Systems - Review of Systems Able to Perform ROS?: Yes Comments:: 01/15/17 02:22 CONSTITUTIONAL: Absent: fever, chills, diaphoresis, generalized weakness, malaise, loss of appetite HEENT: +throat pain Absent: rhinorrhea, nasal congestion, throat swelling, difficulty swallowing, mouth swelling, ear pain, eye pain, visual Changes CARDIOVASCULAR: Absent: chest pain, loss of consciousness, palpitations, irregular heart rate, peripheral edema RESPIRATORY: Absent: cough, shortness of breath, dyspnea with exertion, orthopnea, wheezing, stridor, hemoptysis GASTROINTESTINAL: Absent: abdominal pain, abdominal distension, nausea, vomiting, diarrhea, constipation, melena, hematochezia GENITOURINARY: Absent: dysuria, frequency, urgency, hesitancy, hematuria, flank pain, genital pain MUSCULOSKELETAL: Absent: myalgia, arthralgia, joint swelling SKIN: Absent: rash, itching, pallor Is the patient limited Welsh proficient: No *Physical Exam - Physical Exam Comments: 01/15/17 02:21 GENERAL: Well developed, well nourished. Awake and alert. No acute distress. Non toxic looking HEENT: Neg Peritonsillar abscess Normocephalic, atraumatic. PERRLA, EOMI. No conjunctival pallor. Sclera are non- icteric. Moist mucous membranes. Oropharynx is clear. NECK: Supple. Full ROM. No JVD. Carotid pulses 2+ and symmetric, without bruits. No thyromegaly. No lymphadenopathy. CARDIOVASCULAR: Regular rate and rhythm. No murmurs, rubs, or gallops. Distal pulses are 2+ and symmetric. PULMONARY: No evidence of respiratory distress. Lungs clear to auscultation bilaterally. No wheezing, rales or rhonchi. ABDOMINAL: Soft. Non-tender. Non-distended. No rebound or guarding. No organomegaly. Normoactive bowel sounds. MUSCULOSKELETAL Normal range of motion at all joints. No bony deformities or tenderness. No CVA tenderness. EXTREMITIES: No cyanosis. No clubbing. No edema. No calf tenderness. SKIN: Warm and dry. Normal capillary refill. No rashes. No jaundice. NEUROLOGICAL: Alert, awake, appropriate. Cranial nerves 2-12 intact. No deficits to light touch and temperature in face, upper extremities and lower extremities. No motor deficits in the in face, upper extremities and lower extremities. Normoreflexic in the upper and lower extremities. Normal speech. Toes are down- going bilaterally. Gait is normal without ataxia. PSYCHIATRIC: Cooperative. Good eye contact. Appropriate mood and affect. ED Treatment Course - LABORATORY CBC & Chemistry Diagram: 01/15/17 01:23 01/15/17 01:23 Progress Note - Progress Note Progress Note: 0325hrs: Successful PO challenge. pt drank water and had a sandwich without n/v *DC/Admit/Observation/Transfer Diagnosis at time of Disposition: Pharyngitis Qualifiers: Pharyngitis/tonsillitis etiology: other specified organisms Qualified Code(s): J02.8 - Acute pharyngitis due to other specified organisms - Discharge Dispostion Condition at time of disposition: Stable Admit: No - Prescriptions Prescriptions: Amoxicillin - [Amoxicillin 875mg Tablet -] 875 mg PO BID #14 tab - Referrals Referrals: Gatito Truong MD [Primary Care Provider] - Evan Yanez MD [Staff Physician] - - Patient Instructions Printed Discharge Instructions: DI for Pharyngitis/Tonsillopharyngitis -- Adult Additional Instructions: Gargle with salt water Increase fluids Tylenol as needed for pain Follow up with DR. YANEZ/ENT Return to the ER for severe/persistent/worsening symptoms - Post Discharge Activity
[2017-01-15 01:03] VITALS: BP 120/80; PULSE 108; TEMP 98.8; BMI 27.4
[2017-01-15] MEDS ORDERED: SODIUM CHLORIDE 1,000 ML IV STA (01:11)
[2017-01-15] MEDS ORDERED: ACETAMINOPHEN 325 MG TABLET (FP) PO ONE (01:11)
--- NOTE | 2017-01-15 01:13 | PDOC ---
*Physical Exam - Vital Signs Last Vital Signs Temp Pulse Resp BP Pulse Ox 98.8 F 108 H 14 120/80 98 01/15/17 01:01 01/15/17 01:01 01/15/17 01:01 01/15/17 01:01 01/15/17 01:01 - Physical Exam Comments: 01/15/17 01:13 The patient was examined by [JONO Bhatt] under my direct supervision. I personally evaluated the patient. I concur with the above findings and the plan of care. ED Treatment Course - LABORATORY CBC & Chemistry Diagram: 01/15/17 01:23 01/15/17 01:23 *DC/Admit/Observation/Transfer Diagnosis at time of Disposition: Pharyngitis - Discharge Dispostion Disposition: HOME Condition at time of disposition: Stable - Prescriptions Prescriptions: Amoxicillin - [Amoxicillin 875mg Tablet -] 875 mg PO BID #14 tab - Referrals Referrals: Gatito Truong MD [Primary Care Provider] - Evan Yanez MD [Staff Physician] - - Patient Instructions Printed Discharge Instructions: DI for Pharyngitis/Tonsillopharyngitis -- Adult Additional Instructions: Gargle with salt water Increase fluids Tylenol as needed for pain Follow up with DR. YANEZ/ENT Return to the ER for severe/persistent/worsening symptoms - Post Discharge Activity
[2017-01-15] MEDS ORDERED: ACETAMINOPHEN 325 MG TABLET (FP) ONE (01:30)
[2017-01-15] MEDS ORDERED: ONDANSETRON 4 MG/2 ML VIAL IVPB ONE (01:35)
[2017-01-15 01:40] LABS: BASOPHIL 0.7 % (0-2.0); EOSINOPHIL 0.4 % (0-4.5); MCH 27.7 pg (25.7-33.7); MCHC 33.4 g/dl (32.0-36.0); MEAN CELL VOLUME 82.9 fl (80-96); MEAN PLT VOLUME 8.1 fl (7.5-11.1); NEUTROPHILS 76.9 % (42.8-82.8); PLATELET COUNT 248 K/MM3 (134-434); RDW 15.7 % (11.6-15.6); WHITE BLOOD COUNT 20.2 K/mm3 (4.0-10.0)
[2017-01-15] MEDS ORDERED: ONDANSETRON 4 MG/2 ML VIAL ONE (01:45)
[2017-01-15 02:11] LABS: ALBUMIN 3.2 g/dl (3.4-5.0); ANION GAP 13 (8-16); BILIRUBIN,TOTAL 0.3 mg/dL (0.2-1.0); CALCIUM 8.5 mg/dL (8.5-10.1); CO2 20 mmol/L (21-32); CREATININE 0.5 mg/dL (0.55-1.02); GLUCOSE,RANDOM 87 mg/dL (74-106); SGOT/AST 11 U/L (15-37); SGPT/ALT 23 U/L (12-78)
[2017-01-15 02:13] LABS: ALK PHOS 76 U/L (45-117); TOT PROT 7.7 g/dl (6.4-8.2)
[2017-01-15] MEDS ORDERED: AZITHROMYCIN IVPB 500 MG in DEXTROSE 5%-WATER - 250 ML IVPB ONE (02:21)
[2017-01-15] MEDS ORDERED: AZITHROMYCIN IVPB 250 ML IVPB ONE (04:09)
[2017-01-15 04:26] LABS: URINE APPEARANCE SLCLOUDY; URINE BILIRUBIN NEGATIVE (NEGATIVE); URINE BLOOD NEGATIVE (NEGATIVE); URINE COLOR LTYELLOW; URINE GLUCOSE (UA) NEGATIVE (NEGATIVE); URINE KETONE 1+ (NEGATIVE); URINE NITRITE NEGATIVE (NEGATIVE); URINE PROTEIN NEGATIVE (NEGATIVE); URINE UROBILINOGEN NEGATIVE mg/dL (0.2-1.0)
[2017-01-15] MEDS ORDERED: AMOXICILLIN 500 MG CAPSULE (FP) PO ONE (04:48)
[2017-01-15] MEDS ORDERED: AMOXICILLIN 500 MG CAPSULE (FP) ONE (04:58)
[2017-01-15 15:17] LABS: URINE LEUK ESTERASE 2+ (NEGATIVE)
[2017-01-17 15:36] LABS: URINE RBC 0-3 /hpf (0-3)
== END 2017-01-15 05:02 | disposition home or self-care (01) ==
LOC: JER 00:51
PROC: 3E0337Z Introduction of Electrolytic and Water Balance Substance into Peripheral Vein, Percutaneous Approach (ICD-10-PCS; principal; 2017-01-15)
PROC: 3E03329 Introduction of Other Anti-infective into Peripheral Vein, Percutaneous Approach (ICD-10-PCS; 2017-01-15)
PROC: 3E033GC Introduction of Other Therapeutic Substance into Peripheral Vein, Percutaneous Approach (ICD-10-PCS; 2017-01-15)
DX: O99.89 Other specified diseases and conditions complicating pregnancy, childbirth and the puerperium (principal); J02.8 Acute pharyngitis due to other specified organisms; Z3A.10 10 weeks gestation of pregnancy; Z09 Encounter for follow-up examination after completed treatment for conditions other than malignant neoplasm; Z87.19 Personal history of other diseases of the digestive system; Z87.442 Personal history of urinary calculi
CPT/HCPCS: 36415; 80053; 81003; 81015; 85025; 87070; 87430; 87804; 96361; 96365; 96375; 99282-25

== ENCOUNTER 2017-07-17 00:10 | Emergency (ER) | payer OTHER ==
--- NOTE | 2017-07-17 00:36 | PDOC ---
History of Present Illness - General Stated Complaint: 35 WEEKS /FEVER Time Seen by Provider: 07/17/17 00:17 History Source: Patient Exam Limitations: No Limitations - History of Present Illness Initial Comments: This is a 32 YO (one miscarriage, currently about 35 weeks ) female with h/o preeclampsia and premature births, who p/w fever, chills, cough , runny nose, sinus pressure, mild burning on urination, and head-to-toe body aches for the past three days. She has taken Tylenol at home with the last dose at 3 pm. She additionally notes baseline lower abdominal pain, which is unchanged from earlier this . She gets regular [employer] care and has to take hormone injections weekly during this to prevent premature . She notes that this has been otherwise uncomplicated and she takes only vitamins, no additional medications. She denies nausea, vomiting, diarrhea, constipation, vaginal bleeding, change in her normal vaginal discharge, change in her baseline leg swelling, or other symptoms. She has decreased movement when she is not feeling well but this improves when she takes Tylenol and feels better. Past History - Past Medical History Allergies/Adverse Reactions: Allergies Allergy/AdvReac Type Severity Reaction Status Date / Time No Known Allergies Allergy Verified 01/15/17 01:00 Home Medications: Ambulatory Orders 19 Tablet 1 tab PO DAILY 05/20/17 Cephalexin [Keflex] 500 mg PO BID #14 capsule 07/17/17 Ferrous Sulfate [Iron] 325 mg PO DAILY 07/17/17 Anemia: Yes Asthma: No Cancer: No Cardiac Disorders: No CVA: No COPD: No CHF: No Dementia: No Diabetes: No GI Disorders: Yes (ACID REFLUX, GASTRITIS) Disorders: Yes (UTI, Kidney Stones) HTN: No Hypercholesterolemia: No Kidney Stones: Yes Liver Disease: No Seizures: No Thyroid Disease: No - Surgical History Abdominal Surgery: No Appendectomy: Yes Cardiac Surgery: No Cholecystectomy: Yes Lung Surgery: No Neurologic Surgery: No Orthopedic Surgery: No - Reproductive History Para: 1 - Immunization History Td Vaccination: Yes TDAP Vaccination: Yes Immunization Up to Date: Yes - Suicide/Smoking/Psychosocial Hx Smoking Status: No Smoking History: Never smoked Have you smoked in the past 12 months: No Number of Cigarettes Smoked Daily: 0 Hx Alcohol Use: No Drug/Substance Use Hx: No Substance Use Type: None Hx Substance Use Treatment: No Review of Systems - Review of Systems Able to Perform ROS?: Yes Constitutional: Yes: Chills, Fever. No: Unexplained wgt Loss HEENTM: Yes: Nose Congestion. No: Throat Pain Respiratory: Yes: Cough. No: Shortness of Breath Cardiac (ROS): No: Chest Pain, Palpitations ABD/GI: Yes: Other (lower abdominal pain unchanged from baseline this ) . No: Constipated, Diarrhea, Nausea, Vomiting : Yes: Burning, Dysuria, Other (no vaginal bleeding, no change in baseline vaginal discharge this ). No: Hematuria Musculoskeletal: No: Back Pain, Neck Pain Integumentary: No: Bruising, Rash Neurological: No: Headache, Numbness, Tingling, Weakness, Dizziness Endocrine: No: Unexplained Weight Gain, Unexplained Weight Loss *Physical Exam - Physical Exam General Appearance: Yes: Nourished, Appropriately Dressed, Mild Distress, Other (adult female who appears moderately uncomfortable, accompanied by significant other at bedside, patient is holding her gravid abdomen, closing her eyes, answering questions appropriately) HEENT: positive: EOMI, JOSE M, Normal Voice, Hearing Grossly Normal. negative: Scleral Icterus (R), Scleral Icterus (L), Nasal Congestion Neck: positive: Trachea midline, Supple. negative: Tender, Rigid Respiratory/Chest: positive: Lungs Clear, Normal Breath Sounds, Other ( occasional cough). negative: Respiratory Distress, Crackles, Rhonchi, Stridor, Wheezing Cardiovascular: positive: Regular Rhythm, Regular Rate, S1, S2. negative: Edema , JVD, Murmur Gastrointestinal/Abdominal: positive: Normal Bowel Sounds, Soft. negative: Tender, Organomegaly, Pulsatile Mass, Guarding Musculoskeletal: positive: Normal Inspection. negative: Decreased Range of Motion, Vertebral Tenderness Extremity: positive: Normal Capillary Refill, Normal Inspection, Normal Range of Motion. negative: Tender, Cyanosis, Swelling Integumentary: positive: Normal Color, Dry, Warm. negative: Erythema, Rash, Bruising Neurologic: positive: account resolution analyst II-XII NML intact (grossly), Fully Oriented, Alert, Normal Mood/Affect, Normal Response, Motor Strength 5/5. negative: EOM Palsy, Facial Droop, Numbness, Sensory Deficit, Confused, Disoriented ED Treatment Course - LABORATORY CBC & Chemistry Diagram: 07/17/17 01:29 07/17/17 01:29 Medical Decision Making - Medical Decision Making Adult female patient p/w generalized malaise, fever, URI sxs, painful urination in . Initial Vital Signs Temp Pulse Resp BP Pulse Ox 97.2 F L 89 19 122/84 100 07/17/17 00:15 07/17/17 00:15 07/17/17 00:15 07/17/17 00:15 07/17/17 00:15 Exam: Appears uncomfortable, but no lymphadenopathy, normal heart and lung exams , no leg swelling. DDX IBNLT: UTI/pyelonephritis, renal colic, ovarian torsion, ovarian cyst, ectopic , PID/TOA, cervicitis, endometritis, malignancy, hernia, cholecystitis, pancreatitis, gastritis, PUD, appendicitis, diverticulitis wwo abscess or perforation, colitis, SBO, bowel ischemia, bowel perforation, constipation, musculoskeletal, dysmenorrhea, endometriosis, fibroids, etc. W/U ordered: CBCD CMP Mg Phos UA UCx TX ordered: IVF, Ofirmev Laboratory Tests 07/17/17 07/17/17 07/17/17 01:29 01:29 01:29 WBC 13.9 H D RBC 4.18 Hgb 12.3 Hct 35.4 MCV 84.6 MCH 29.4 MCHC 34.7 RDW 15.9 H Plt Count 197 D MPV 8.9 Neutrophils % 71.0 Lymphocytes % 18.7 D Monocytes % 7.4 Eosinophils % 2.6 D Basophils % 0.3 Sodium 138 Potassium 4.4 Chloride 104 Carbon Dioxide 20 L Anion Gap 14 BUN 10 Creatinine 0.6 Creat Clearance w eGFR > 60 Random Glucose 126 H Calcium 9.0 Phosphorus 3.5 Magnesium 2.1 Total Bilirubin 0.2 D AST 61 H ALT 69 Alkaline Phosphatase 199 H Total Protein 7.1 Albumin 2.6 L Urine Color Ltyellow Urine Appearance Slcloudy Urine pH 6.0 Ur Specific [place] 1.006 Urine Protein Negative Urine Glucose (UA) Negative Urine Ketones Negative Urine Blood 1+ H Urine Nitrite Negative Urine Bilirubin Negative Urine Urobilinogen Negative Ur Leukocyte Esterase 3+ H D Urine WBC (Auto) 14 Urine RBC (Auto) 46 Ur Epithelial Cells Few Urine Bacteria Many Reassessment: Patient states head-to-toe body aches improved after IV Tylenol. Repeat VS: The patient has gotten significant relief of symptoms with ED medications. Workup is not concerning for emergency-level pathology at this time. The patient is appropriate for discharge with close outpatient follow up. The patient is comfortable with this plan and will follow up with their outpatient providers in 1-3 days. She will take Tylenol for pain, and filler picker and take her antibiotic Rx for her UTI. She will follow up with their regular doctor in the next 1-3 days. Return precautions are discussed and they will come back to the ER if necessary. *DC/Admit/Observation/Transfer Diagnosis at time of Disposition: Urinary tract infection Qualifiers: Urinary tract infection type: acute cystitis Hematuria presence: without hematuria Qualified Code(s): N30.00 - Acute cystitis without hematuria Qualifiers: Weeks of gestation: 35 weeks Qualified Code(s): Z3A.35 - 35 weeks gestation of Fever Qualifiers: Fever type: unspecified Qualified Code(s): R50.9 - Fever, unspecified Upper respiratory infection Qualifiers: URI type: unspecified URI Qualified Code(s): J06.9 - Acute upper respiratory infection, unspecified - Discharge Dispostion Disposition: HOME Condition at time of disposition: Stable Decision to Admit order: No - Prescriptions Prescriptions: Cephalexin [Keflex] 500 mg PO BID #14 capsule - Referrals Referrals: Gatito Truong MD [Primary Care Provider] - - Patient Instructions Printed Discharge Instructions: DI for Urinary Tract Infection (UTI) Additional Instructions: You were seen in the ER for fever. We did an exam, and laboratory work on your blood and urine, and we found evidence of a urinary tract infection but did not find any other signs of an emergency. Your pain improved with the medications we gave you here in the ER and we gave you a dose of antibiotic here. After our assessment, we believe you are not having a medical emergency and you are safe to go home. Please take Tylenol for fever and bodily pain. 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 Please go to the L&D floor immediately after you leave the emergency room to have your baby evaluated. Follow up with your regular doctor(s) in the next 1-3 days. Call their clinic [facility], tell them you were seen in the ER, and tell them you need an appointment. Please come back to the ER at any time, 24 hours a day, for any new or worsening symptoms, like worsening pelvic pain, discharge, high fever, or other symptoms. If you are having severe or life threatening symptoms, or symptoms that make it unsafe to drive or have someone drive you, please call 911. Que fueron atendidos en la salima de urgencias para la fiebre. Hicimos un examen, y trabajo de laboratorio en patricia rosa y orina, y encontramos evidencia de maria luisa infeccin urinaria, whit no encontr ninguna otros signos de maria luisa emergencia. El dolor no mejora con los medicamentos que le dimos aqu en el ER y le dimos maria luisa dosis de antibitico. Despus de nuestra evaluacin, creemos que usted no est teniendo maria luisa emergencia mdica y que son seguras para ir a casa. Srvase olivier Tylenol para la fiebre y el dolor. Recoger y olivier patricia prescripcin antibitica de patricia farmacia. Por favor vaya a la L&D palabra inmediatamente despus de salir de la salima de emergencia para tener a patricia beb evaluados. Seguimiento con patircia m dico regular(s) en los prximos 1-3 fuentes. Llame a patricia clnica de [facility], dgales que fueron vistos en el ER, y decirles que usted necesita maria luisa elliot. Por favor, vuelva a la salima de urgencias en cualquier momento, las 24 horas del da, para cualquier nueva o empeoramiento de los sntomas, rony el empeoramiento de dolor plvico, secrecin, fiebre yara u otros sntomas. Si tiene sntomas graves o potencialmente mortales, o los sntomas que lo hacen inseguro para conducir o tener alguien que, por favor, llame al 911. Print Language: BULGARIAN - Post Discharge Activity
--- NOTE | 2017-07-17 00:38 | PDOC ---
Attending Attestation - Resident Resident Name: Laury Redd - ED Attending Attestation I have performed the following: I have examined & evaluated the patient, The case was reviewed & discussed with the resident, I agree w/resident's findings & plan, Exceptions are as noted - HPI HPI: 07/17/17 01:33 Mr Torin Esparza is a 32 yo F (one miscarriage, 35 weeks ) h/o preeclampsia and premature She presents to the ER with a complaint of fever, chills, cough, runny nose, sinus pressure, mild burning on urination, and head-to-toe body aches for the past three days. Taking tylenol She denies nausea, vomiting, diarrhea, constipation, vaginal bleeding, change in her normal vaginal discharge, change in her baseline leg swelling, or other symptoms. She has noted decreased movement when she is not feeling well but this improves when she takes Tylenol and feels better. - Physicial Exam PE: 07/17/17 02:18 On exam Pt is coughing RRR, no tachycardia CTA, no wheezing, no labored breathing Gravid abdomen No lower extremity edema - Medical Decision Making 07/17/17 01:39 Will do labs Will do UA Will IV hydrate Will re assess Signed out to Dr Stoddard
[2017-07-17 00:48] VITALS: BP 122/84; PULSE 89; BMI 35.9
[2017-07-17] MEDS ORDERED: SODIUM CHLORIDE 0.9% 500 ML INFUS.BAG IV ONE (00:55)
[2017-07-17] MEDS ORDERED: ACETAMINOPHEN 1000 MG/100 ML VIAL (NON FORMULARY) IVPB ONE (00:56)
[2017-07-17 01:11] VITALS: TEMP 100.2
[2017-07-17] MEDS ORDERED: ACETAMINOPHEN INJECTION 100 ML IVPB ONE (01:35)
[2017-07-17 01:36] LABS: BASO % 0.3 % (0-2.0); EOS % 2.6 % (0-4.5); HEMATOCRIT 35.4 % (32.4-45.2); HEMOGLOBIN 12.3 GM/dL (10.7-15.3); LYMPH % 18.7 % (8-40); MCH 29.4 pg (25.7-33.7); MCHC 34.7 g/dl (32.0-36.0); MEAN CELL VOLUME 84.6 fl (80-96); MEAN PLT VOLUME 8.9 fl (7.5-11.1); MONO % 7.4 % (3.8-10.2); PLATELET COUNT 197 K/MM3 (134-434); RBC 4.18 M/mm3 (3.60-5.2); RDW 15.9 % (11.6-15.6); WHITE BLOOD COUNT 13.9 K/mm3 (4.0-10.0)
[2017-07-17 01:39] LABS: URINE APPEARANCE SLCLOUDY; URINE BILIRUBIN NEGATIVE (<2.0 mg/dL); URINE COLOR LTYELLOW; URINE GLUCOSE (UA) NEGATIVE (NEGATIVE); URINE KETONE NEGATIVE (NEGATIVE); URINE NITRITE NEGATIVE (NEGATIVE); URINE PROTEIN NEGATIVE (NEGATIVE); URINE UROBILINOGEN NEGATIVE mg/dL (0.2-1.0)
[2017-07-17 01:44] LABS: URINE LEUK ESTERASE 3+ (NEGATIVE)
[2017-07-17 01:51] LABS: EPI CELLS FEW /HPF (FEW); URINE BACTERIA MANY /hpf (NONE SEEN)
[2017-07-17 02:16] LABS: ALBUMIN 2.6 g/dl (3.4-5.0); ANION GAP 14 (8-16); BILIRUBIN,TOTAL 0.2 mg/dL (0.2-1.0); BLOOD UREA NITROGEN 10 mg/dL (7-18); CHLORIDE 104 mmol/L (98-107); CO2 20 mmol/L (21-32); CREATININE 0.6 mg/dL (0.55-1.02); GLUCOSE,RANDOM 126 mg/dL (74-106); PHOSPHOROUS 3.5 mg/dL (2.5-4.9); SGPT/ALT 69 U/L (12-78); SODIUM 138 mmol/L (136-145); TOT PROT 7.1 g/dl (6.4-8.2)
[2017-07-17 02:17] LABS: ALK PHOS 199 U/L (45-117)
[2017-07-17 02:20] LABS: MAGNESIUM 2.1 mg/dL (1.8-2.4); POTASSIUM 4.4 mmol/L (3.5-5.1); SGOT/AST 61 U/L (15-37)
[2017-07-17] MEDS ORDERED: CEPHALEXIN MONOHYDRATE 500 MG CAPSULE (UD) PO ONE (03:02)
[2017-07-17] MEDS ORDERED: CEPHALEXIN MONOHYDRATE 500 MG CAPSULE (UD) ONE (03:10)
--- NOTE | 2017-07-19 20:05 | PDOC ---
Patient Follow-up (Call Back) - Post ED Follow - Up Condition at time of discharge: Stable Disposition at time of original discharge: HOME Reason for Call Back: Abnwl. Microbiology (Throat culture grew strep pyogense. Pt on Keflex. No further action needed at this time.)
== END 2017-07-17 04:20 | disposition home or self-care (01) ==
LOC: JER 00:10
PROC: 3E033NZ Introduction of Analgesics, Hypnotics, Sedatives into Peripheral Vein, Percutaneous Approach (ICD-10-PCS; principal; 2017-07-17)
DX: O26.893 Other specified pregnancy related conditions, third trimester (principal); O23.13 Infections of bladder in pregnancy, third trimester; J06.9 Acute upper respiratory infection, unspecified; Z3A.35 35 weeks gestation of pregnancy
CPT/HCPCS: 36415; 80053; 81003; 81015; 83735; 84100; 85025; 87070; 87077; 87086; 87430; 96374; 99281-25; J0131

== ENCOUNTER 2017-11-07 15:25 | Emergency (ER) | payer OTHER ==
[2017-11-07 15:41] VITALS: BP 117/59; PULSE 82; TEMP 98.2; BMI 31.3
--- NOTE | 2017-11-07 16:19 | PDOC ---
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 Patient reported she had Pizza yesterday and she broke out with hives which spontaneously improved without medication. Patient also report 1 week history of urinary frequency and dysuria. Denies any fever, nausea or vomiting or back pains. Patient reported history of recurrent UTIs Timing/Duration: other (3 months) Past History - Past Medical History Allergies/Adverse Reactions: Allergies Allergy/AdvReac Type Severity Reaction Status Date / Time No Known Allergies Allergy Verified 11/07/17 15:42 Home Medications: Ambulatory Orders Hydroxyzine HCl 25 mg PO Q8H PRN #20 tablet 11/07/17 Prednisone [Deltasone] 20 mg PO BID 4 Days #8 tablet 11/07/17 Sulfamethoxazole/Trimethoprim [Bactrim Ds -] 1 tab PO BID 5 Days #10 tablet 05/22 Anemia: Yes Asthma: No Cancer: No Cardiac Disorders: No CVA: No COPD: No CHF: No DVT: No Dementia: No Diabetes: No GI Disorders: Yes (ACID REFLUX, GASTRITIS) Disorders: Yes (UTI, Kidney Stones) HTN: No Hypercholesterolemia: No Kidney Stones: Yes Liver Disease: No Seizures: No Thyroid Disease: No - Surgical History Abdominal Surgery: No Appendectomy: Yes Cardiac Surgery: No Cholecystectomy: Yes Lung Surgery: No Neurologic Surgery: No Orthopedic Surgery: No - Reproductive History Para: 1 - Immunization History Td Vaccination: Yes TDAP Vaccination: Yes Immunization Up to Date: Yes - Suicide/Smoking/Psychosocial Hx Smoking Status: No Smoking History: Never smoked Have you smoked in the past 12 months: No Number of Cigarettes Smoked Daily: 0 Information on smoking cessation initiated: No Hx Alcohol Use: No Drug/Substance Use Hx: No Substance Use Type: None Hx Substance Use Treatment: No Review of Systems - Review of Systems Able to Perform ROS?: Yes Is the patient limited Sami proficient: No Constitutional: No: Chills, Diaphoresis, Fever, Loss of Appetite, Malaise, Night Sweats, Weakness, Weight Stable, Unintentional Wgt. Loss, Unexplained wgt Loss, Other HEENTM: No: Eye Pain, Blurred Vision, Tearing, Recent change in vision, Double Vision, Cataracts, Ear Pain, Ocular Prothesis, Ear Discharge, Nose Pain, Nose Congestion, Tinnitus, Nose Bleeding, Hearing Loss, Throat Pain, Throat Swelling , Mouth Pain, Dental Problems, Difficulty Swallowing, Mouth Swelling, Other Respiratory: No: Cough, Orthopnea, Shortness of Breath, SOB with Exertion, SOB at Rest, Stridor, Wheezing, Productive cough, Hemoptysis, Other Cardiac (ROS): No: Chest Pain, Edema, Irregular Heart Rate, Lightheadedness, Palpitations, Syncope, Chest Tightness, Other ABD/GI: No: Abdominal Distended, Abd. Pain w/ defecation, Blood Streaked Bowels , Constipated, Diarrhea, Difficulty Swallowing, Nausea, Poor Appetite, Poor Fluid Intake, Rectal Bleeding, Vomiting, Indigestion, Abdominal cramping, Tarry Stools, Other : Yes: See HPI, Burning, Dysuria, Frequency, Urgency. No: Discharge, Flank Pain, Hematuria, Incontinence Musculoskeletal: No: Back Pain, Gout, Joint Pain, Joint Swelling, Muscle Pain, Muscle Weakness, Neck Pain, Joint Stiffness, Other Integumentary: Yes: See HPI, Pruritus (all over the body), Rash (all over the body) All Other Systems: Reviewed and Negative *Physical Exam - Vital Signs Last Vital Signs Temp Pulse Resp BP Pulse Ox 98.2 F 82 17 117/59 100 11/07/17 15:30 11/07/17 15:30 11/07/17 15:30 11/07/17 15:30 11/07/17 15:30 - Physical Exam Comments: 11/07/17 16:22 GENERAL: Well developed, well nourished. Awake and alert. No acute distress. HEENT: Normocephalic, atraumatic. PERRLA, EOMI. No conjunctival pallor. Sclera are non- icteric. Moist mucous membranes. Oropharynx is clear. NECK: Supple. Full ROM. No JVD. Carotid pulses 2+ and symmetric, without bruits. No thyromegaly. No lymphadenopathy. CARDIOVASCULAR: Regular rate and rhythm. No murmurs, rubs, or gallops. Distal pulses are 2+ and symmetric. PULMONARY: No evidence of respiratory distress. Lungs clear to auscultation bilaterally. No wheezing, rales or rhonchi. ABDOMINAL: Soft. Non-tender. Non-distended. No rebound or guarding. No organomegaly. Normoactive bowel sounds. MUSCULOSKELETAL Normal range of motion at all joints. No bony deformities or tenderness. No CVA tenderness. EXTREMITIES: No cyanosis. No clubbing. No edema. No calf tenderness. SKIN: Mild erythematous rash to torso, bilateral upper extremities and lower extremities without excoriations NEUROLOGICAL: Alert, awake, appropriate. Cranial nerves 2-12 intact. No deficits to light touch and temperature in face, upper extremities and lower extremities. No motor deficits in the in face, upper extremities and lower extremities. Normoreflexic in the upper and lower extremities. Normal speech. Toes are down- going bilaterally. Gait is normal without ataxia. PSYCHIATRIC: Cooperative. Good eye contact. Appropriate mood and affect. General Appearance: Yes: Nourished, Appropriately Dressed. No: Apparent Distress Medical Decision Making - Medical Decision Making 11/07/17 16:25 Patient with h/o recurrent UTIs presenting with complain of 3 months history of intermittent rashes that resolved spontaneously. Patient reported she broke out in hives yesterday after eating pizza which has improved today without medication. Patient also report a week history of urinary dysuria and frequency with history of recurrent UTIs. Exam shows no visible hives right picture shown by patient from the phone shows hives from yesterday. UA urine culture sent. Patient will be treated for ALLERGIC dermatitis with antihistamine and dermatology follow-up. Patient will also be treated for UTI with neurology follow-up *DC/Admit/Observation/Transfer Diagnosis at time of Disposition: Urticaria Urinary tract infection Qualifiers: Urinary tract infection type: site unspecified Hematuria presence: with hematuria Qualified Code(s): N39.0 - Urinary tract infection, site not specified ; R31.9 - Hematuria, unspecified - Discharge Dispostion Disposition: HOME Condition at time of disposition: Stable Decision to Admit order: No - Prescriptions Prescriptions: Hydroxyzine HCl 25 mg PO Q8H PRN #20 tablet PRN Reason: itching and rash Prednisone [Deltasone] 20 mg PO BID 4 Days #8 tablet Sulfamethoxazole/Trimethoprim [Bactrim Ds -] 1 tab PO BID 5 Days #10 tablet - Referrals Referrals: Gatito Truong MD [Primary Care Provider] - Frederic Wick MD [Non Staff, Medical] - - Patient Instructions Printed Discharge Instructions: MARTHA Dowling for Urinary Tract Infection (UTI) Additional Instructions: Take prescribed medication as prescribed. follow-up with preferred dermatology for follow-up evaluation. Follow-up with her urology as scheduled for recurrent UTI - Post Discharge Activity
[2017-11-07 16:22] LABS: URINE APPEARANCE SLCLOUDY; URINE BILIRUBIN NEGATIVE (<2.0 mg/dL); URINE COLOR YELLOW; URINE GLUCOSE (UA) NEGATIVE (NEGATIVE); URINE KETONE NEGATIVE (NEGATIVE); URINE LEUK ESTERASE TRACE (NEGATIVE); URINE NITRITE NEGATIVE (NEGATIVE); URINE PROTEIN NEGATIVE (NEGATIVE); URINE UROBILINOGEN NEGATIVE mg/dL (0.2-1.0)
[2017-11-07 16:23] LABS: HCG,QUALITATIVE URINE Negative
[2017-11-07 16:24] LABS: EPI CELLS MODERATE /HPF (FEW); URINE MUCUS RARE
== END 2017-11-07 16:41 | disposition home or self-care (01) ==
LOC: JERFT 15:25
DX: L50.9 Urticaria, unspecified (principal); N39.0 Urinary tract infection, site not specified; R31.9 Hematuria, unspecified; T78.1XXA Other adverse food reactions, not elsewhere classified, initial encounter; L50.0 Allergic urticaria; X58.XXXA Exposure to other specified factors, initial encounter
CPT/HCPCS: 81003; 81015; 84703; 99281-25

== ENCOUNTER 2018-01-10 17:24 | Emergency (ER) | payer OTHER ==
--- NOTE | 2018-01-10 17:37 | PDOC ---
Rapid Medical Evaluation Chief Complaint: Urinary Problem Time Seen by Provider: 01/10/18 17:32 Medical Evaluation: Allergies Allergy/AdvReac Type Severity Reaction Status Date / Time No Known Allergies Allergy Verified 01/10/18 17:28 01/10/18 17:33 I have performed a brief in person evaluation of this patient. This patient presents with a CC of: dysuria Pt is a 32 YO who complains dysuria x 1 week. She is currently on Macrobid which is not working. She also has had a rash and foot edema p abx which has resolved since taking an abx. PE: Skin: Clear Lungs: Clear Heart: RRR Abd: No pain MS: Moves all extremities without difficulty. Neuro: Alert and oriented, I have ordered the following: ua, urine culture The patient will proceed to the [facility] for further evaluation. Discharge Disposition - Diagnosis Dysuria - Referrals Referrals: Gatito Truong MD [Primary Care Provider] - - Patient Instructions - Post Discharge Activity
[2018-01-10 17:47] VITALS: BP 133/77; PULSE 90; TEMP 98.5; BMI 31.2
[2018-01-10 18:01] LABS: URINE APPEARANCE CLEAR; URINE BILIRUBIN NEGATIVE (<2.0 mg/dL); URINE COLOR LTYELLOW; URINE GLUCOSE (UA) NEGATIVE (NEGATIVE); URINE KETONE NEGATIVE (NEGATIVE); URINE LEUK ESTERASE NEGATIVE (NEGATIVE); URINE NITRITE NEGATIVE (NEGATIVE); URINE PROTEIN NEGATIVE (NEGATIVE); URINE UROBILINOGEN NEGATIVE mg/dL (0.2-1.0)
[2018-01-10 18:12] LABS: EPI CELLS RARE /HPF (FEW); URINE MUCUS RARE
--- NOTE | 2018-01-10 18:44 | PDOC ---
History of Present Illness - General Chief Complaint: Urinary Problem Stated Complaint: UTI/FEVER Time Seen by Provider: 01/10/18 17:32 - History of Present Illness Initial Comments: 01/10/18 18:42 32-year-old female on Macrobid for urinary tract infection presents for evaluation of dysuria. She continues to have symptoms despite antibiotic therapy. Past History - Past Medical History Allergies/Adverse Reactions: Allergies Allergy/AdvReac Type Severity Reaction Status Date / Time No Known Allergies Allergy Verified 01/10/18 17:28 Home Medications: Ambulatory Orders Phenazopyridine HCl [Pyridium] 200 mg PO TID #6 tablet 01/10/18 Anemia: Yes Asthma: No Cancer: No Cardiac Disorders: No CVA: No COPD: No CHF: No DVT: No Dementia: No Diabetes: No GI Disorders: Yes (ACID REFLUX, GASTRITIS) Disorders: Yes (UTI, Kidney Stones) HTN: No Hypercholesterolemia: No Kidney Stones: Yes Liver Disease: No Seizures: No Thyroid Disease: No - Surgical History Abdominal Surgery: No Appendectomy: Yes Cardiac Surgery: No Cholecystectomy: Yes Lung Surgery: No Neurologic Surgery: No Orthopedic Surgery: No - Reproductive History Para: 1 - Immunization History Td Vaccination: Yes TDAP Vaccination: Yes Immunization Up to Date: Yes - Suicide/Smoking/Psychosocial Hx Smoking Status: No Smoking History: Never smoked Have you smoked in the past 12 months: No Number of Cigarettes Smoked Daily: 0 Hx Alcohol Use: No Drug/Substance Use Hx: No Substance Use Type: None Hx Substance Use Treatment: No Review of Systems - Review of Systems : Yes: Dysuria *Physical Exam - Vital Signs Last Vital Signs Temp Pulse Resp BP Pulse Ox 98.5 F 90 18 133/77 100 01/10/18 17:29 01/10/18 17:29 01/10/18 17:29 01/10/18 17:29 01/10/18 17:29 - Physical Exam Comments: 01/10/18 18:43 HEAD: NC/AT EYES: Conjuntiva clear MS: Full ROM in all joints without edema NEUROLOGIC: No gross sensory or motor deficits, NVID SKIN: Normal color and temperature no lesions or rashes ED Treatment Course - ADDITIONAL ORDERS Additional order review: Laboratory Results 01/10/18 17:50 Urine Color Ltyellow Urine Appearance Clear Urine pH 6.0 Ur Specific Raymond 1.011 Urine Protein Negative Urine Glucose (UA) Negative Urine Ketones Negative Urine Blood 1+ H Urine Nitrite Negative Urine Bilirubin Negative Urine Urobilinogen Negative Ur Leukocyte Esterase Negative Urine WBC (Auto) <1 Urine RBC (Auto) <1 Ur Epithelial Cells Rare Urine Mucus Rare Medical Decision Making - Medical Decision Making 01/10/18 18:43 Had a long discussion with the patient as well as her , she has a negative UA today. I will prescribe her for Pyridium and have her follow-up with urology *DC/Admit/Observation/Transfer Diagnosis at time of Disposition: Dysuria - Discharge Dispostion Disposition: HOME Condition at time of disposition: Stable Decision to Admit order: No - Prescriptions Prescriptions: Phenazopyridine HCl [Pyridium] 200 mg PO TID #6 tablet - Referrals Referrals: Gatito Truong MD [Primary Care Provider] - Edu Dickens MD [Staff Physician] - Annamarie Samano MD [Non Staff, Medical] - Terrence Lopez MD [Non Staff, Medical] - Dejah Tamayo MD [Non Staff, Medical] - Brandon Bueno MD [Non Staff, Medical] - Levon Nieto MD [Non Staff, Medical] - - Patient Instructions Printed Discharge Instructions: DI for Dysuria -- Adult Additional Instructions: Please follow-up with urology in 2-3 days for further evaluation and treatment options. Take the medication as directed and finish the antibiotics she will prescribed. He did not have any signs of a urinary tract infection on her urine today a culture was sent - Post Discharge Activity
== END 2018-01-10 19:06 | disposition home or self-care (01) ==
LOC: JER 17:24
DX: R30.0 Dysuria (principal); Z79.2 Long term (current) use of antibiotics; Z87.440 Personal history of urinary (tract) infections; Z87.442 Personal history of urinary calculi; Z87.19 Personal history of other diseases of the digestive system; Z86.2 Personal history of diseases of the blood and blood-forming organs and certain disorders involving the immune mechanism
CPT/HCPCS: 81003; 81015; 87086; 99281-25

== ENCOUNTER 2018-06-05 13:12 | Emergency (ER) | payer OTHER ==
--- NOTE | 2018-06-05 13:24 | PDOC ---
Rapid Medical Evaluation Time Seen by Provider: 06/05/18 13:19 Medical Evaluation: Allergies Allergy/AdvReac Type Severity Reaction Status Date / Time No Known Allergies Allergy Verified 01/10/18 17:28 06/05/18 13:21 I have performed a brief in-person evaluation of this patient The patient present with a chief complaint of: sorethroat since Tuesday with high fever. Took ibuprofen one hour ago Also reports pain with swallow Pertinent physical exam findings: NAD HEENT: +2 tonsils with exudate I have ordered the following: rapid strep and throat culture, The patient will proceed to the ED for further evaluation. Discharge Disposition - Diagnosis Sorethroat - Referrals - Patient Instructions - Post Discharge Activity
[2018-06-05 13:25] VITALS: BP 110/73; PULSE 109; TEMP 99.2; BMI 29.2
[2018-06-05] MEDS ORDERED: KETOROLAC TROMETHAMINE 60 MG/2 ML VIAL IM ONE (15:31)
[2018-06-05] MEDS ORDERED: DEXAMETHASONE LIQUID 0.5 MG/5 ML 240 ML BULK BOTTLE PO ONE (15:31)
[2018-06-05] MEDS ORDERED: DEXAMETHASONE SOD PHOSPHATE 10 MG/1 ML VIAL ONE (15:33)
[2018-06-05] MEDS ORDERED: KETOROLAC TROMETHAMINE 60 MG/2 ML VIAL ONE (15:33)
--- NOTE | 2018-06-05 15:41 | PDOC ---
History of Present Illness - General Chief Complaint: Respiratory Stated Complaint: FEVER Time Seen by Provider: 06/05/18 13:19 History Source: Patient Exam Limitations: Clinical Condition - History of Present Illness Initial Comments: 06/05/18 15:36 Patient with no significant past medical history present with complaint of three -day history of nasal congestion, body aches, cough, fever, chills and headache. Patient reported last fever this morning which she took Tylenol. Denies nausea, vomiting. Denies any other symptoms Timing/Duration: other (3 days) Past History - Past Medical History Allergies/Adverse Reactions: Allergies Allergy/AdvReac Type Severity Reaction Status Date / Time No Known Allergies Allergy Verified 01/10/18 17:28 Home Medications: Ambulatory Orders Amox-Tr/K Cl [Augmentin - 875Mg Tablet] 1 tab PO BID #14 tablet 06/05/18 Ipratropium [place] 2 spray NS BID PRN #1 spray 06/05/18 Methylprednisolone [Medrol Dose Jayden] 4 mg PO ASDIR #21 tablet 06/05/18 Anemia: Yes Asthma: No Cancer: No Cardiac Disorders: No CVA: No COPD: No CHF: No DVT: No Dementia: No Diabetes: No GI Disorders: Yes (ACID REFLUX, GASTRITIS) Disorders: Yes (UTI, Kidney Stones) HTN: No Hypercholesterolemia: No Kidney Stones: Yes Liver Disease: No Seizures: No Thyroid Disease: No - Surgical History Abdominal Surgery: No Appendectomy: Yes Cardiac Surgery: No Cholecystectomy: Yes Lung Surgery: No Neurologic Surgery: No Orthopedic Surgery: No - Reproductive History Para: 1 - Immunization History Td Vaccination: Yes TDAP Vaccination: Yes Immunization Up to Date: Yes - Suicide/Smoking/Psychosocial Hx Smoking Status: No Smoking History: Never smoked Have you smoked in the past 12 months: No Number of Cigarettes Smoked Daily: 0 Information on smoking cessation initiated: No Hx Alcohol Use: No Drug/Substance Use Hx: No Substance Use Type: None Hx Substance Use Treatment: No Review of Systems - Review of Systems Able to Perform ROS?: Yes Is the patient limited Romansh proficient: No Constitutional: Yes: Chills, Fever, Malaise HEENTM: Yes: Symptoms Reported, See HPI, Nose Congestion, Throat Pain. No: Eye Pain, Blurred Vision, Tearing, Recent change in vision, Double Vision, Cataracts , Ear Pain, Ocular Prothesis, Ear Discharge, Nose Pain, Tinnitus, Nose Bleeding , Hearing Loss, Throat Swelling, Mouth Pain, Dental Problems, Difficulty Swallowing, Mouth Swelling, Other Respiratory: Yes: Symptoms reported, See HPI, Cough. No: Orthopnea, Shortness of Breath, SOB with Exertion, SOB at Rest, Stridor, Wheezing, Productive cough, Hemoptysis, Other Cardiac (ROS): No: Symptoms Reported, See HPI, Chest Pain, Edema, Irregular Heart Rate, Lightheadedness, Palpitations, Syncope, Chest Tightness, Other ABD/GI: No: Constipated, Diarrhea, Nausea, Vomiting Neurological: Yes: Headache. No: Numbness, Paresthesia, Dizziness All Other Systems: Reviewed and Negative *Physical Exam - Vital Signs Last Vital Signs Temp Pulse Resp BP Pulse Ox 99.2 F 109 H 20 110/73 99 06/05/18 13:19 06/05/18 13:19 06/05/18 13:19 06/05/18 13:19 06/05/18 13:19 - Physical Exam Comments: 06/05/18 15:41 GENERAL: Well developed, well nourished. Awake and alert. No acute distress. HEENT: Mild pharyngeal erythema with mildly enlarged bilateral tonsils with white exudate. Normocephalic, atraumatic. PERRLA, EOMI. No conjunctival pallor. Sclera are non-icteric. Moist mucous membranes. NECK: Supple. Full ROM. CARDIOVASCULAR: Regular rate and rhythm. No murmurs, rubs, or gallops. Distal pulses are 2+ and symmetric. PULMONARY: No evidence of respiratory distress. Lungs clear to auscultation bilaterally. No wheezing, rales or rhonchi. ABDOMINAL: Soft. Non-tender. Non-distended. No rebound or guarding. No organomegaly. Normoactive bowel sounds. MUSCULOSKELETAL Normal range of motion at all joints. SKIN: Warm and dry. Normal capillary refill. no cyanosis.No rashes. No jaundice. NEUROLOGICAL: Alert, awake, appropriate. Gait is normal without ataxia. PSYCHIATRIC: Cooperative. Good eye contact. Appropriate mood General Appearance: Yes: Nourished, Appropriately Dressed, Mild Distress Medical Decision Making - Medical Decision Making 06/05/18 15:42 Patient with no significant past medical history present with complaint of three -day history of nasal congestion, body aches, dry cough, fever or chills and headache. Patient with complaint of chills during exam. Lungs clear to auscultation bilateral. Mild pharyngeal erythema with mildly enlarged bilateral tonsils with white exudates on exam. Rapid strep, rapid flu tests ordered. Toradol 60 mg IM and Decadron 10 mg by mouth ordered for pain and headache. Treat based on lab results 06/05/18 16:23 Rapid flu negative. Rapid strep positive. Patient is stable for outpatient management of strep pharyngitis with Augmentin for week, Medrol Jayden and Atrovent nasal spray with PCP follow-up. *DC/Admit/Observation/Transfer Diagnosis at time of Disposition: Strep pharyngitis, Malaise URI (upper respiratory infection) Qualifiers: URI type: acute pharyngitis Pharyngitis/tonsillitis etiology: streptococcus Qualified Code(s): J02.0 - Streptococcal pharyngitis - Discharge Dispostion Disposition: HOME Condition at time of disposition: Stable Decision to Admit order: No - Prescriptions Prescriptions: Amox-Tr/K Cl [Augmentin - 875Mg Tablet] 1 tab PO BID #14 tablet Ipratropium [place] 2 spray NS BID PRN #1 spray PRN Reason: nasal congestion Methylprednisolone [Medrol Dose Jayden] 4 mg PO ASDIR #21 tablet - Referrals Referrals: Gatito Truong MD [Primary Care Provider] - - Patient Instructions Printed Discharge Instructions: Strep Throat Additional Instructions: Your strep test was positive. Take medication as prescribed. Increase fluid intake. - Post Discharge Activity
== END 2018-06-05 16:30 | disposition home or self-care (01) ==
LOC: JER 13:12 → JERFT 13:12
PROC: 3E0233Z Introduction of Anti-inflammatory into Muscle, Percutaneous Approach (ICD-10-PCS; principal; 2018-06-05)
DX: J02.0 Streptococcal pharyngitis (principal); B95.0 Streptococcus, group A, as the cause of diseases classified elsewhere; Z87.19 Personal history of other diseases of the digestive system; Z87.442 Personal history of urinary calculi
CPT/HCPCS: 87070; 87077; 87804; 87880; 96372; 99281-25

== ENCOUNTER 2019-01-28 22:00 | Emergency (ER) | payer OTHER ==
[2019-01-28 22:10] VITALS: BP 104/71; PULSE 94; TEMP 98.3; BMI 39.6
--- NOTE | 2019-01-28 22:45 | PDOC ---
Documentation entered by Nilsa Raya SCRIBE, acting as scribe for Juancho Chance MD. Juancho Chance MD: This documentation has been prepared by the miahiibe, Nilsa Raya SCRIBE, under my direction and personally reviewed by me in its entirety. I confirm that the documentation accurately reflects all work, treatment, procedures, and medical decision making performed by me. History of Present Illness - General Chief Complaint: Urinary Problem Stated Complaint: FREQUENT URINARY TRACT INFECTIONS History Source: Patient Exam Limitations: No Limitations - History of Present Illness Initial Comments: 01/28/19 22:14 The patient is a 33-year-old female with a past medical history significant for frequent UTIs who present to the emergency department with urinary symptoms. The patient reports shes been having 3 weeks of dysuria and lower abdominal pain, thats worse in the morning. The patient states shes been taking amoxicillin and a vaginal cream for the symptoms, which she got from [facility]. The patient reports she would have relief, but the symptoms return. The patient states she was told she needed a ureteral stent, but the patient is unsure why. Denies fever or chills. Past History - Past Medical History Allergies/Adverse Reactions: Allergies Allergy/AdvReac Type Severity Reaction Status Date / Time No Known Allergies Allergy Verified 01/28/19 22:02 Home Medications: Ambulatory Orders Amoxicillin 1,000 mg PO BID 01/28/19 Naproxen 500 mg PO BID #10 tablet 01/28/19 Phenazopyridine HCl [Pyridium] 200 mg PO TID #6 tablet 01/28/19 Sulfamethoxazole/Trimethoprim [Bactrim Ds -] 1 tab PO DAILY #14 tablet 01/28/19 Anemia: Yes Asthma: No Cancer: No Cardiac Disorders: No CVA: No COPD: No CHF: No DVT: No Dementia: No Diabetes: No GI Disorders: Yes (ACID REFLUX, GASTRITIS) Disorders: Yes (UTI, Kidney Stones) HTN: No Hypercholesterolemia: No Kidney Stones: Yes Liver Disease: No Seizures: No Thyroid Disease: No - Surgical History Abdominal Surgery: No Appendectomy: Yes Cardiac Surgery: No Cholecystectomy: Yes Lung Surgery: No Neurologic Surgery: No Orthopedic Surgery: No - Reproductive History Para: 1 - Immunization History Td Vaccination: Yes TDAP Vaccination: Yes Immunization Up to Date: Yes - Psycho Social/Smoking Cessation Hx Smoking Status: No Smoking History: Never smoked Have you smoked in the past 12 months: No Number of Cigarettes Smoked Daily: 0 Hx Alcohol Use: No Drug/Substance Use Hx: No Substance Use Type: None Hx Substance Use Treatment: No Review of Systems - Review of Systems Able to Perform ROS?: Yes Comments:: 01/28/19 22:15 Constitutional - Pt denies Fever, Chills, weakness, HEENT: denies vision changes, sore throat Respiratory: Denies cough, sob, hemoptysis Cardiac: denies chest pain, palpitations, light headedness, leg swelling Abd/GI: +lower abdominal pain. denies nausea, vomiting, blood per rectum, melena , diarrhea : +dysuria. Denies discharge. Musculskelatal: denies back pain, joint swelling skin - denies bruising, erythema, rash neurological: denies headache, numbness, focal weakness, tingling, ataxia, weakness hematologic: denies anemia, easy bruising, easy bleeding Medical Decision Making - Medical Decision Making 01/29/19 04:37 pocus: no urinary retention, no hydro uti abx, analgesia pt to fu Ucx Discharge - Discharge Information Problems reviewed: Yes Clinical Impression/Diagnosis: Urinary tract infection Qualifiers: Urinary tract infection type: acute cystitis Hematuria presence: without hematuria Qualified Code(s): N30.00 - Acute cystitis without hematuria Condition: Stable Disposition: HOME - Additional Discharge Information Prescriptions: Naproxen 500 mg PO BID #10 tablet Phenazopyridine HCl [Pyridium] 200 mg PO TID #6 tablet Sulfamethoxazole/Trimethoprim [Bactrim Ds -] 1 tab PO DAILY #14 tablet - Follow up/Referral - Patient Discharge Instructions Patient Printed Discharge Instructions: DI for Urinary Tract Infection (UTI) - Post Discharge Activity
[2019-01-28] MEDS ORDERED: KETOROLAC TROMETHAMINE 60 MG/2 ML VIAL IM ONE (22:51)
[2019-01-28 22:55] LABS: EPITHELIAL CELLS FEW /hpf
[2019-01-28] MEDS ORDERED: KETOROLAC TROMETHAMINE 60 MG/2 ML VIAL ONE (22:55)
[2019-01-28] MEDS ORDERED: PHENAZOPYRIDINE HCL 100 MG TABLET (FP) PO ONE (23:14)
[2019-01-28] MEDS ORDERED: PHENAZOPYRIDINE HCL 100 MG TABLET (FP) ONE (23:23)
[2019-01-28] MEDS ORDERED: SULFAMETHOXAZOLE/TRIMETHOPRIM 800MG/160MG D.S. TABLET ONE (23:23)
[2019-01-29] MEDS ORDERED: SULFAMETHOXAZOLE/TRIMETHOPRIM 800MG/160MG D.S. TABLET PO ONE (23:14)
--- NOTE | 2019-01-31 16:22 | PDOC ---
Patient Follow-up (Call Back) - Post ED Follow - Up Condition at time of discharge: Stable Disposition at time of original discharge: HOME - Disposition Additional Instructions/Notes: Phone call to patient 4:15 PM today. She is still symptomatic with burning in the vaginal area. This is independent of urination. Culture results show 10-20,000 E. coli which is resistant to Bactrim, her current medication. However, with a low colony counts, it is unlikely that this is a UTI. There is also heavy yeast in the urine, which suggests the etiology of the burning is probably yeast vaginitis Instructed to stop the Bactrim, begin Terazol, which was sent to her pharmacy, and follow-up if still symptomatic on Tuesday with primary physician or ER. Although the patient does not speak Turkish, her is fluent and received the message, seems reliable to follow-up with her recommendations.
== END 2019-01-28 23:27 | disposition home or self-care (01) ==
LOC: FER 22:00
PROC: 3E0233Z Introduction of Anti-inflammatory into Muscle, Percutaneous Approach (ICD-10-PCS; principal; 2019-01-28)
DX: N30.00 Acute cystitis without hematuria (principal); D64.9 Anemia, unspecified; K21.9 Gastro-esophageal reflux disease without esophagitis; Z87.442 Personal history of urinary calculi; Z87.440 Personal history of urinary (tract) infections
CPT/HCPCS: 81003; 81015; 84703; 87077; 87086; 87186; 99282-25

== ENCOUNTER 2019-02-05 15:50 | Emergency (ER) | payer OTHER ==
[2019-02-05 16:09] VITALS: BP 114/72; PULSE 100; TEMP 98.3; BMI 39.5
--- NOTE | 2019-02-05 16:20 | PDOC ---
Attending Attestation - Resident Resident Name: Joel Mir - [facility] HPI: 02/05/19 17:35 Pt presents to the ED complaining of a several month history of dysuria and vaginal burning. Patient has a long standing history of urologic complaints and is unable to give complete history. Has been self prescribing augementin x 2 months. Denies fever or abdominal pain. Denies nausea or vomiting. Patient was seen in the ED on 01/28 and initially prescribed bactrim which was then changed to azole cream when bacteria count in culture was only 10,000. Presents today because she is still symptomatic. - Physicial Exam PE: 02/05/19 17:39 agree with resident exam. Abdomen is soft, non tender, non distended without guarding or rebound. Pelvic exam has thick whitish discharge as per resident. - Medical Decision Making 02/05/19 17:40 Pt presents to the ED complaining of vaginal burning and dysuria. UA shows moderate bacteria, but also has epitheial cells and given her pelvic exam and history, will wait for urine cx to treat. Will treat with difflucan for presumed yeast infection. Patient was urged to follow up with Gu and SEWER BRICKLAYER.
[2019-02-05 16:45] LABS: EPITHELIAL CELLS FEW /hpf
[2019-02-05] MEDS ORDERED: ACETAMINOPHEN 325 MG TABLET (FP) PO ONE (16:47)
[2019-02-05] MEDS ORDERED: ACETAMINOPHEN 500 MG TABLET (FP) ONE (16:54)
[2019-02-05] MEDS ORDERED: FLUCONAZOLE 50 MG TABLET PO ONE (17:30)
[2019-02-05] MEDS ORDERED: FLUCONAZOLE 150 MG TABLET PO ONE (17:32)
--- NOTE | 2019-02-05 17:35 | PDOC ---
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 She states pain is constant and intermittently worse with urination. She reports no abdominal pain or radiation of pain. She describes pain as burning and states it causes her to be be in a position. She has been self medicating herself [facility] for 2[facility] with 1-2 pills daily. She was recently seen and placed on Bactrim for a presumed UTI however was changed to an azole cream after culture showed minimal cell numbers. Her symptoms briefly improved with the azole cream when she started it 5 days ago, however, after 2 days of pain relief, her symptoms returned. She was on her way to followup with her urologist today but was told to go to the ED for evaluation. She denies fever, vaginal discharge/bleeding, hematuria PMHx: as noted above ROS: as noted SHx: Denies tobacco use; occasional alcohol use; no rec drugs Allergies: NKDA ROS: GENERAL/CONSTITUTIONAL: No fever or chills. No weakness. HEAD, EYES, EARS, NOSE AND THROAT: No change in vision. No ear pain or discharge. No sore throat. CARDIOVASCULAR: No chest pain or shortness of breath RESPIRATORY: No cough, wheezing, or hemoptysis. GASTROINTESTINAL: No nausea, vomiting, diarrhea or constipation. GENITOURINARY: +dysuria; no frequency, or change in urination. MUSCULOSKELETAL: No joint or muscle swelling or pain. No neck or back pain. SKIN: No rash NEUROLOGIC: No headache, vertigo, loss of consciousness, or change in strength/ sensation. ENDOCRINE: No increased thirst. No abnormal weight change HEMATOLOGIC/LYMPHATIC: No anemia, easy bleeding, or history of blood clots. ALLERGIC/IMMUNOLOGIC: No hives or skin allergy. PE: GENERAL: Awake, alert, and fully oriented, no acute distress HEAD: No signs of trauma, normocephalic, atraumatic EYES: EOMI, sclera anicteric, conjunctiva clear ENT: Auricles normal inspection, hearing grossly normal, nares patent, oropharynx clear without exudates. Moist mucosa NECK: Normal ROM, no lymphadenopathy LUNGS: No increased work of breathing, symmetrical chest rise, clear to auscultation bilaterally, no wheezes, crackles or rhonchi HEART: Regular rate and rhythm, normal S1 and S2, no murmurs, peripheral pulses 2+ and equal bilaterally. ABDOMEN: Soft, nondistended, nontender, normoactive bowel sounds. No guarding, no rebound. No masses. No CVAT GENITOURINARY: Nml appearing external genitalia, with absent lesions. Vaginal vault without blood, +clumpy appearing white discharge on the galan of the vaginal canal. no foul odor. Cervical os closed. Neg CMT on BM. Neg adenexal ttp , or mass palpated. EXTREMITIES: Normal inspection, Normal range of motion, no edema. No clubbing or cyanosis. NEUROLOGICAL: Cranial nerves II through XII grossly intact. Normal speech, normal gait, no focal sensorimotor deficits SKIN: Warm, Dry, normal turgor, no rashes or lesions noted Past History - Past Medical History Allergies/Adverse Reactions: Allergies Allergy/AdvReac Type Severity Reaction Status Date / Time No Known Allergies Allergy Verified 01/28/19 22:02 Home Medications: Ambulatory Orders Amoxicillin 1,000 mg PO BID 01/28/19 Naproxen 500 mg PO BID #10 tablet 01/28/19 Phenazopyridine HCl [Pyridium] 200 mg PO TID #6 tablet 01/28/19 Terconazole 1 applic VG BID #1 tube 01/31/19 Ibuprofen 800 mg PO TID PRN #25 tablet 02/05/19 Anemia: Yes Asthma: No Cancer: No Cardiac Disorders: No CVA: No COPD: No CHF: No DVT: No Dementia: No Diabetes: No GI Disorders: Yes (ACID REFLUX, GASTRITIS) Disorders: Yes (UTI, Kidney Stones) HTN: No Hypercholesterolemia: No Kidney Stones: Yes Liver Disease: No Seizures: No Thyroid Disease: No - Surgical History Abdominal Surgery: No Appendectomy: Yes Cardiac Surgery: No Cholecystectomy: Yes Lung Surgery: No Neurologic Surgery: No Orthopedic Surgery: No - Reproductive History Para: 1 - Immunization History Td Vaccination: Yes TDAP Vaccination: Yes Immunization Up to Date: Yes - Psycho Social/Smoking Cessation Hx Smoking Status: No Smoking History: Never smoked Have you smoked in the past 12 months: No Number of Cigarettes Smoked Daily: 0 Hx Alcohol Use: No Drug/Substance Use Hx: No Substance Use Type: None Hx Substance Use Treatment: No *Physical Exam - Vital Signs Last Vital Signs Temp Pulse Resp BP Pulse Ox 98.3 F 100 H 16 114/72 98 02/05/19 15:52 02/05/19 15:52 02/05/19 15:52 02/05/19 15:52 02/05/19 15:52 ED Treatment Course - ADDITIONAL ORDERS Additional order review: Laboratory Results 02/05/19 16:00 Urine Color Yellow Urine Appearance Clear Urine pH 5.5 Urine Protein Negative Urine Glucose (UA) Negative Urine Ketones Negative Urine Blood 1+ H Urine Nitrite Negative Urine Bilirubin Negative Urine Urobilinogen 0.2 Ur Leukocyte Esterase 2+ Urine RBC 5-10 Urine WBC 40-60 Ur Transition Epith Cell Few Urine Bacteria Moderate - Medications Given in the ED: ED Medications Discontinued Medications Generic Name Dose Route Start Last Admin Trade Name Freq PRN Reason Stop Dose Admin Acetaminophen 975 mg 02/05/19 16:47 02/05/19 16:55 Tylenol - PO 02/05/19 16:48 975 mg ONCE ONE Administration Medical Decision Making - Medical Decision Making 02/05/19 17:57 33 y/o F with hx of ?UVR 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 Patient reports self medicating with abx. VSS, AF. PE notable for white clumpy discharge of vaginal canal. DDx includes uti vs sti vs yeast infection. Given inappropriate use of abx as well as physical exam, likely yeast infection -ua, ucx, vaginal culture, GC amp, tylenol 02/05/19 17:59 UA nonconvincing for utip; will send ucx and followup results will treat with 150mg fluconazole x1 in the ED it is imperative that patient follows up with urologist and military technology manager discussed results with patient and family and they understand; questions answered; they will followup Discharge - Discharge Information Problems reviewed: Yes Clinical Impression/Diagnosis: Pelvic pain Condition: Good Disposition: HOME - Additional Discharge Information Prescriptions: Ibuprofen 800 mg PO TID PRN #25 tablet PRN Reason: Pain - Follow up/Referral Referrals: Quang Truong [Primary Care Provider] - - Patient Discharge Instructions Patient Printed Discharge Instructions: DI for Pelvic Pain, DI for Dyspareunia Additional Instructions: Additional Instructions: Please return to the emergency department with any new or worsening symptoms or concerns. Please follow up with your urologist and Inspector [employer] as soon as you can Please take 800mg ibuprofen every 8 hours as needed for pain control. Instrucciones adicionales: Regrese al departamento de emergencias con cualquier sntoma o inquietud nueva o que empeore. Cesilia un seguimiento con patricia urlogo y gineclogo lo antes posible. [place] 800 mg de ibuprofeno cada 8 horas segn sea necesario para controlar el dolor. Print Language: GIBRALTARIAN - Post Discharge Activity
== END 2019-02-05 17:42 | disposition home or self-care (01) ==
LOC: FER 15:50
DX: R10.2 Pelvic and perineal pain (principal); D64.9 Anemia, unspecified
CPT/HCPCS: 36415; 81003; 81015; 81025; 87070; 87086; 87186; 87205; 87491; 87591; 99283-25

== ENCOUNTER 2021-10-09 00:22 | Emergency (ER) | payer OTHER ==
[2021-10-09 00:32] VITALS: BP 130/88; PULSE 98; RESP 17; TEMP 99.1; BMI 39.6
[2021-10-09 02:06] LABS: EPI CELLS 11 /uL (0-25.1); HYALINE CASTS 0 /uL (0-3.1); PH,URINE 5.5 (5.0-8.0); URINE APPEARANCE CLEAR; URINE BACTERIA 166 /uL (0-1359); URINE BILIRUBIN NEGATIVE (NEGATIVE); URINE COLOR YELLOW; URINE GLUCOSE (UA) NEGATIVE (NEGATIVE); URINE KETONE NEGATIVE (NEGATIVE); URINE LEUK ESTERASE 2+ (NEGATIVE); URINE NITRITE NEGATIVE (NEGATIVE); URINE PROTEIN NEGATIVE (NEGATIVE); URINE RBC 7 /uL (0-23.9); URINE UROBILINOGEN 0.2 mg/dL (0.2-1.0); URINE WBC 153 /uL (0-25.8)
[2021-10-09] MEDS ORDERED: SULFAMETHOXAZOLE/TRIMETHOPRIM 800MG/160MG D.S. TABLET PO ONE (02:18)
[2021-10-09] MEDS ORDERED: ACETAMINOPHEN 500 MG TABLET (FP) PO ONE (02:25)
[2021-10-09] MEDS ORDERED: SULFAMETHOXAZOLE/TRIMETHOPRIM 800MG/160MG D.S. TABLET ONE (02:26)
[2021-10-09] MEDS ORDERED: ACETAMINOPHEN 325 MG TABLET (FP) ONE (02:26)
== END 2021-10-09 03:21 | disposition home or self-care (01) ==
LOC: FER 00:22
DX: N39.0 Urinary tract infection, site not specified (principal); N89.8 Other specified noninflammatory disorders of vagina
CPT/HCPCS: 74176-TC; 76830-TC; 81003; 84703; 87077; 87086; 99284-25

== ENCOUNTER 2021-11-04 00:15 | Emergency (ER) | payer OTHER ==
[2021-11-04 00:23] VITALS: BP 121/82; PULSE 81; RESP 17; TEMP 99.1; BMI 28.1
[2021-11-04] MEDS ORDERED: IBUPROFEN 600 MG TABLET (FP) PO ONE ×2 (00:47→00:51)
[2021-11-04 01:24] LABS: EPI CELLS >36 /uL (0-25.1); HYALINE CASTS 0 /uL (0-3.1); URINE APPEARANCE CLEAR; URINE BILIRUBIN NEGATIVE (NEGATIVE); URINE COLOR DK YELLOW; URINE GLUCOSE (UA) NEGATIVE (NEGATIVE); URINE KETONE NEGATIVE (NEGATIVE); URINE LEUK ESTERASE TRACE (NEGATIVE); URINE NITRITE POSITIVE (NEGATIVE); URINE PROTEIN NEGATIVE (NEGATIVE); URINE RBC 10 /uL (0-23.9); URINE WBC 29 /uL (0-25.8)
[2021-11-04] MEDS ORDERED: PHENAZOPYRIDINE HCL 100 MG TABLET (FP) PO ONE (01:26)
[2021-11-04] MEDS ORDERED: NITROFURANTOIN MACROCRYSTAL 50 MG CAPSULE (FP) PO SCH (01:30)
[2021-11-04] MEDS ORDERED: NITROFURANTOIN MACROCRYSTAL 50 MG CAPSULE (FP) ONE (01:31)
[2021-11-04] MEDS ORDERED: PHENAZOPYRIDINE HCL 100 MG TABLET (FP) ONE (01:32)
== END 2021-11-04 03:01 | disposition home or self-care (01) ==
LOC: FER 00:15
DX: N39.0 Urinary tract infection, site not specified (principal)
CPT/HCPCS: 74176-TC; 81003; 81025; 87086; 99283-25

== ENCOUNTER 2022-04-21 02:44 | Emergency (ER) | payer OTHER ==
[2022-04-21 02:54] VITALS: BP 141/86; PULSE 83; RESP 18; TEMP 98.1; BMI 28.8
[2022-04-21] MEDS ORDERED: IBUPROFEN 400 MG TABLET (FP) PO ONE ×2 (03:26→03:31)
[2022-04-21 03:29] LABS: URINE COLOR DK YELLOW
[2022-04-21 03:30] LABS: PH,URINE 5.5 (5.0-8.0); URINE APPEARANCE CLEAR; URINE BILIRUBIN NEGATIVE (NEGATIVE); URINE GLUCOSE (UA) NEGATIVE (NEGATIVE); URINE KETONE NEGATIVE (NEGATIVE); URINE PROTEIN NEGATIVE (NEGATIVE)
[2022-04-21 03:31] LABS: URINE LEUK ESTERASE 3+ (NEGATIVE); URINE NITRITE POSITIVE (NEGATIVE)
== END 2022-04-21 04:15 | disposition home or self-care (01) ==
LOC: JER 02:44
DX: N39.0 Urinary tract infection, site not specified (principal)
CPT/HCPCS: 81003; 84703; 87086; 99283-25

== ENCOUNTER 2024-01-18 00:02 | Emergency (ER) | payer OTHER ==
[2024-01-18 00:25] VITALS: BP 113/74; PULSE 107; RESP 20; TEMP 99.5
[2024-01-18 01:14] VITALS: BMI 30.7
[2024-01-18 02:35] LABS: HIV INTERPRETATION NEGATIVE (NEGATIVE)
[2024-01-18] MEDS ORDERED: ACETAMINOPHEN 500 MG TABLET (FP) ONE (02:42)
[2024-01-18] MEDS: ACETAMINOPHEN 500 MG TABLET (FP) PO ONE (02:47)
[2024-01-18] MEDS: PENICILLIN G BENZATHINE 1,200,000 UNIT/2 ML PFS IM ONE (04:13)
== END 2024-01-18 04:14 | disposition home or self-care (01) ==
LOC: JER 00:02
DX: J02.0 Streptococcal pharyngitis (principal); R11.2 Nausea with vomiting, unspecified; R50.9 Fever, unspecified; Z20.822 Contact with and (suspected) exposure to COVID-19
CPT/HCPCS: 0241U-QW; 36415; 86803; 87070; 87077; 87389; 99284-25